=== PATIENT | female | born 1985 | race African-American/Black ===

== ENCOUNTER 2020-05-08 16:59 | Emergency (ER) | payer OTHER, SELFPAY ==
--- NOTE | 2020-05-08 17:12 | ED.GENADULT ---
HPI - General Adult General Chief complaint: Abdominal Pain Stated complaint: left side pain Time Seen by Provider: 05/08/20 17:12 Source: patient, RN notes reviewed and old records reviewed Mode of arrival: ambulatory Limitations: no limitations History of Present Illness HPI narrative: 35-year-old female presents to the [facility] with complaints of left lower abdominal pain/cramping radiating into the left lower back. States that she learns a couple of days ago that she was . 5 previous pregnancies. States she has never had pain like this before during . Has tried drinking water to improve pain but it is not working. Reports pain 7 out of 10. Denies nausea and vomiting. Reports that she is 9-10 weeks . OB is [facility] Related Data Home Medications Medication Instructions Recorded Confirmed No Home Medications 12/28/18 12/28/18 Allergies Allergy/AdvReac Type Severity Reaction Status Date / Time No Known Allergies Allergy Verified 05/08/20 17:12 Review of Systems Review of Systems: Narrative: CONSTITUTIONAL: Denies fever, chills, or sweats. CARDIOVASCULAR: Denies chest pain, palpitations, or edema. RESPIRATORY: Denies cough or dyspnea. GASTROINTESTINAL: Reports left lower abdominal pain. Denies nausea, vomiting, or diarrhea. GENITOURINARY: Denies dysuria or hematuria. SKIN: Denies rash or itching. MUSCULOSKELETAL: left lower back pain. Denies joint pain, or myalgia. NEUROLOGIC: Denies headache, numbness, or weakness. PSYCHIATRIC: Denies anxiety or depression. All other systems reviewed are negative, except as documented in HPI. PMFSH Family History Family History Father Hypertension Social History Social History Smoking status: Never smoker Second hand tobacco smoke exposure: No Substance use: current Last use: yesterday Gender identity (if verbalized by the patient): Female Spiritual care concerns: No Comments At the time of my signature, I reviewed and agree with the nursing past medical, surgical, social, and family history. There is no relevant family history pertinent to the patient complaint. Exam Narrative: Exam Narrative: GENERAL: This is a well-nourished, well-developed patient, in no apparent distress. HEAD: normocephalic, atraumatic. EYES: PERRL. Sclera clear/white. Vision is grossly intact. EARS: External ears normal. CARDIOVASCULAR: Regular rate and rhythm without murmurs, gallops, or rubs. RESPIRATORY: Clear to auscultation. GASTROINTESTINAL: Abdomen soft, Left lower tenderness. SKIN: warm, intact with no suspicious lesions or rash, good texture and turgor. NEURO: awake, alert, and oriented to person, place and time. There were no obvious focal neurologic abnormalities. EXTREMITIES: No joint tenderness, effusion, or edema noted. BACK: Nonreproducible pain left side. No midline tenderness Course Course Emergency Course: Due to patient being , left lower quadrant pain, left lower back pain without urinary symptoms discussed with patient the importance of being transferred to the ER. EMS offered patient reported that she will go by private vehicle. Vital Signs Vital signs: Vital Signs Temperature 97.8 F 05/08/20 17:16 Pulse Rate 88 05/08/20 17:16 Respiratory Rate 16 05/08/20 17:16 Blood Pressure 122/75 05/08/20 17:16 Pulse Oximetry 98 05/08/20 17:16 Temperature 97.8 F 05/08/20 17:16 Pulse Rate 88 05/08/20 17:16 Respiratory Rate 16 05/08/20 17:16 Blood Pressure 122/75 05/08/20 17:16 Pulse Oximetry 98 05/08/20 17:16 Reviewed Transfer Transfered to: [facility] Transfer rationale: Due to lack of services to include blood work and ultrasound it was best that the patient be evaluated at the closest ER. Patient prefers [place]. Accepting physician: Iglesia TAVERAS. Medical Decision Making MDM Narrative Medical decision making narrat
[2020-05-08 17:16] VITALS: BP 122/75; PULSE 88; RESP 16; TEMP 36.6; O2SAT 98
== END 2020-05-08 17:20 | disposition short-term general hospital (02) ==
PROVIDERS: Emergency Provider Nurse Practitioner
DX: O26.891 Other specified pregnancy related conditions, first trimester (principal); R10.32 Left lower quadrant pain; Z3A.09 9 weeks gestation of pregnancy
CPT/HCPCS: 99212; G0463

== ENCOUNTER 2020-05-08 17:37 | Emergency (ER) | payer OTHER, SELFPAY ==
[2020-05-08 17:39] VITALS: BP 127/81; PULSE 91; RESP 18; TEMP 36.4; O2SAT 100
[2020-05-08 17:49] LABS: Basophils Absolute Auto 0.1 K/mm3 (0.0-0.1); Basophils Percent Auto 0.4 % (0.2-1.2); Eosinophils Absolute Auto 0.3 K/mm3 (0-0.3); Hematocrit 37.9 % (37.0-47.0); Immature Granulocyte Absolute 0.06 K/mm3 (0.00-0.031); Immature Granulocyte Percent A 0.4 % (0-0.5); Lymphocytes Absolute Auto 2.69 K/mm3 (0.9-3.2); Mean Corpuscular HGB Conc 34.3 g/dl (32-36); Mean Corpuscular Hemoglobin 31.3 pg (26-34); Mean Corpuscular Volume 91.1 fl (80-100); Mean Platelet Volume 10.1 fl (7.4-10.4); Monocytes Absolute Auto 1.1 K/mm3 (0.1-0.6); Monocytes Percent Auto 7.8 % (2.6-8.5); Neutrophils Percent Auto 70.4 % (45.5-73.1); Platelet Count Result 222 k/mm3 (150-375); Red Blood Count 4.16 M/mm3 (4.2-5.4); Red Cell Distribution Width 12.7 % (11.5-14.5); White Blood Count 14.2 K/mm3 (4.5-10.0)
[2020-05-08 18:03] LABS: Anion Gap 7 mmol/L (8-16); Blood Urea Nitrogen 9 mg/dL (7-17); Calcium 8.9 mg/dL (8.4-10.2); Carbon Dioxide 22 mmol/L (22-30); Chloride 104 mmol/L (98-107); Estimated CRCL calculation 96 ml/min; Estimated Glomerular Filt Rate > 60; Glucose 97 mg/dL (65-105); Potassium 3.7 mmol/L (3.4-5.0); Sodium 133 mmol/L (137-145)
--- NOTE | 2020-05-08 18:34 | ED.GENADULT ---
HPI - General Adult General Chief complaint: Back Pain/Injury Stated complaint: flank pain - 9wks preg Time Seen by Provider: 05/08/20 18:21 Source: patient Mode of arrival: ambulatory Limitations: no limitations History of Present Illness HPI narrative: Patient is 35 years old -[place] female complaining of left lower quadrant and lateral side of left hip pain and the left flank pain started 2 days ago. Today patient started having cramps in the left lower quadrant. Patient denies any vaginal bleeding or discharge, nausea or vomiting, fever or chills. Patient is 5, para 4, 0. Patient is 9 weeks was seen by [facility] 5 days ago with normal pelvic ultrasound Related Data Home Medications Medication Instructions Recorded Confirmed No Home Medications 12/28/18 05/08/20 Allergies Allergy/AdvReac Type Severity Reaction Status Date / Time No Known Allergies Allergy Verified 05/08/20 17:12 Review of Systems Review of Systems: Narrative: CONSTITUTIONAL: Denies fever, chills, or sweats. EYES: Denies visual changes, redness, or discharge. ENT: Denies rhinorrhea, congestion, sore throat, or otalgia. CARDIOVASCULAR: Denies chest pain, palpitations, or edema. RESPIRATORY: Denies cough or dyspnea. GASTROINTESTINAL: Denies abdominal pain, nausea, vomiting, or diarrhea. GENITOURINARY: Denies dysuria or hematuria. SKIN: Denies rash or itching. MUSCULOSKELETAL: Denies back pain, joint pain, or myalgia. NEUROLOGIC: Denies headache, numbness, or weakness. PSYCHIATRIC: Denies anxiety or depression. PMFSH Family History Family History Father Hypertension Social History Social History Smoking status: Never smoker Second hand tobacco smoke exposure: No Substance use: current Last use: yesterday Gender identity (if verbalized by the patient): Female Spiritual care concerns: No Exam Narrative: Exam Narrative: General appearance: Well-developed, well-nourished Skin: Normal color Head: Normocephalic, nontraumatic Eyes: Clear conjunctiva ENT: Oropharynx normal, ears normal, nose normal Neck: Supple, nontender Chest and respiratory: Airway patent, no respiratory distress, no accessory muscle use Heart: Regular rate/rhythm Abdomen: Soft, slight tenderness in the left lower quadrant , no organomegaly, quiet bowel sounds Vascular: Normal peripheral pulses, normal capillary refill. 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 Reevaluation(s) Reevaluation #1: Patient declined to wait for pelvic ultrasound and decided to sign AMA. Date: 05/08/20 Time: 21:09 Vital Signs Vital signs: Vital Signs Temperature 36.4 C 05/08/20 17:39 Pulse Rate 91 05/08/20 17:39 Respiratory Rate 18 05/08/20 17:39 Blood Pressure 127/81 05/08/20 17:39 Pulse Oximetry 100 05/08/20 17:39 Temperature 36.4 C 05/08/20 17:39 Pulse Rate 91 05/08/20 17:39 Respiratory Rate 18 05/08/20 17:39 Blood Pressure 127/81 05/08/20 17:39 Pulse Oximetry 100 05/08/20 17:39 Medical Decision Making MDM Narrative Medical decision making narrative: Patient presents with left lower quadrant pain. Urinary tract infection, ectopic , strain/sprain is my concern. Labs, UA, beta hCG and pelvic ultrasound ordered. Further plan to follow Differ
[2020-05-08 18:59] LABS: Add Urine Microscopic? YES; Appearance Urine Clear (Clear); Bacteria Urine Trace /hpf; Bilirubin Urine Negative (Negative); Blood Urine Negative (Negative); Color Urine Straw (Yellow); Glucose Urine UA Negative (Negative); Ketones Urine Negative (Negative); Leukocyte Esterase Ur Trace LEU/UL (Negative); Mucus Urine Rare /lpf; Nitrate Urine Negative (Negative); Protein Urine Negative (Negative); RBC Urine 0-2 /hpf (0-2); Specific Grav Ur 1.013 (1.001-1.035); Squamous Epithelial Cell Urine Many /hpf (Few); Urobilinogen Urine Negative mg/dL (<2.0); WBC Urine 0-3 /hpf
[2020-05-08 19:02] VITALS: BP 116/77; PULSE 80; RESP 16; O2SAT 100
[2020-05-08 19:06] LABS: Alanine Aminotransferase 16 U/L (4-35); Alkaline Phosphatase 69 U/L (38-126); Aspartate Amino Transferase 45 U/L (14-36); Bilirubin,Total 0.2 mg/dL (0.2-1.3); Lipase 133 U/L (23-300)
--- NOTE | 2020-05-08 19:21 | PC.NURSE ---
Pt presents to ED with complaints of left flank pain that radiates around to abdomen; pt 9 weeks . Pt states pain is now rated 5/10 at this time and when offered pain medication, pt refused. Pt alert and oriented x4. Denies nausea and emesis, vaginal bleeding and diarrhea. Pt resting on cart in its lowest position with call button and personal items within reach. No complaints or concerns voiced at this time. Pt advised to press call button for assistance.
[2020-05-08 19:27] VITALS: BP 111/74; PULSE 83; RESP 17; TEMP 36.7; O2SAT 100
[2020-05-08 20:14] VITALS: BP 112/80; PULSE 85; RESP 20; O2SAT 100
--- NOTE | 2020-05-08 20:21 | PC.NURSE ---
Ultrasound called for pt transport. States someone should be down for pt soon.
--- NOTE | 2020-05-08 20:22 | PC.NURSE ---
RN asked if US had been called at this time. I spoke with Shyla whom called and was informed that they had never been contacted and they would call them in now.
--- NOTE | 2020-05-08 21:06 | PC.NURSE ---
Ultrasound never arrived for pt. Pt now requesting to leave AMA. EDMD notified and AMA forms completed by EDMD.
--- NOTE | 2020-05-08 21:19 | PC.NURSE ---
Ultrasound presented to bedside to take pt and pt refused and states she still want to leave AMA. Paperwork completed and pt to sign.
[2020-05-08 21:20] VITALS: BP 123/83; PULSE 77; RESP 18; TEMP 36.8; O2SAT 100
--- NOTE | 2020-05-08 21:20 | PC.NURSE ---
Pt signed AMA documents and was educated on danger in leaving AMA and the need to follow up due to potential ectopic and pt voiced her understanding.
[2020-05-08 21:38] VITALS: BP 123/83; PULSE 77; RESP 18; TEMP 36.8; O2SAT 100
== END 2020-05-08 21:23 | disposition left against medical advice (07) ==
PROVIDERS: Emergency Provider Emergency Medicine
DX: O26.891 Other specified pregnancy related conditions, first trimester (principal); R10.2 Pelvic and perineal pain; Z3A.09 9 weeks gestation of pregnancy
CPT/HCPCS: 36415; 80048; 80076; 81001; 81025; 83690; 84702; 85025; 99283

== ENCOUNTER 2020-08-31 16:45 | Observation (INO) | payer OTHER, SELFPAY ==
[2020-08-31 17:00] VITALS: BP 119/71; PULSE 119
--- NOTE | 2020-08-31 17:30 | PC.NURSE ---
1730-S.Dori EDOUARD called,informed pt came is c/o lower back pain that is constant and intermittent lower abdominal cramping. Pt denies any hx of pre term labor. Order received for UA and flexeril for pain.
[2020-08-31 17:32] VITALS: BMI 26.8
--- NOTE | 2020-08-31 17:33 | OBADM ---
This patient, Alla Rausch, admitted to the OB room OB Post [facility] for observation. Patient/family oriented to hospital policies and general routines including ID bracelet, bed and alarms, visiting hours, pain management, procedures, bathroom and other care routines, personal items, smoking policy, room service/diet, and visiting hours. Patient/Family are encouraged to report perceived risks to care and to ask questions if they do not understand what they are told or what they should do.
[2020-08-31] MEDS: CYCLOBENZAPRINE HCL 10 MG TABLET PO (17:42)
[2020-08-31 17:45] LABS: Add Urine Microscopic? YES; Amorphous Sediment Urine Few; Appearance Urine Cloudy (Clear); Bacteria Urine Trace /hpf; Bilirubin Urine Negative (Negative); Blood Urine Negative (Negative); Color Urine Yellow (Yellow); Glucose Urine UA Negative (Negative); Ketones Urine 1+ mg/dL (Negative); Leukocyte Esterase Ur Trace LEU/UL (Negative); Mucus Urine Heavy /lpf; Nitrate Urine Negative (Negative); Protein Urine 1+ mg/dL (Negative); Specific Grav Ur 1.018 (1.001-1.035); Squamous Epithelial Cell Urine Many /hpf (Few); Urobilinogen Urine Negative mg/dL (<2.0); WBC Urine 0-3 /hpf
--- NOTE | 2020-08-31 17:46 | PC.NURSE ---
1745-Abdomen palpated, soft to touch. Pt denies contractions.
--- NOTE | 2020-08-31 18:15 | PC.NURSE ---
Pt rocking back and forth in bed and states pain is still 10 on pain scale. Pain is across low back and with radiation down left leg. Pt denies any abdominal pain. States pain started when she threw up this morning. Pt states she went [place] zoo yesterday and states she may have gotten over heated. Warm blanket applied to low back.
--- NOTE | 2020-08-31 18:50 | PC.NURSE ---
Update to Keri Meadows CNM regarding pt getting minimal relief from Flexeril. Also advised Angely pt is concerned she is dehydrated. Order received.
[2020-08-31] MEDS: LACTATED RINGERS 1,000 ML 999 ML IV CONT (19:09)
[2020-08-31] MEDS: HYDROcodone/acetaminophen (*CRX) 5-325 MG TABLET 1 TAB PO (19:10)
[2020-08-31] MEDS: ONDANSETRON INJ 4 MG/2 ML VIAL IV PUSH (20:08)
[2020-08-31 20:24] VITALS: BP 115/65; PULSE 110
--- NOTE | 2020-08-31 20:45 | PC.NURSE ---
Pt states she is feeling much better and pain is improving. Angely Meadows notified. Feel comfortable going home to rest. Pt instructed to stay hydrated. No Diet Pepsi and do not get overheated. Pt to call office tomorrow for PT referral.
--- NOTE | 2020-09-03 21:19 | PM.OBTRLD ---
OB - Triage/Final Diagnosis Visit Information Date of evaluation: 08/31/20 Reason for evaluation: threatened labor Comments/Additional reasons for admission: I have assessed the risk for this patient, Alla Rausch, and determined that she would benefit from observation care. Evaluation Laboratory results: Laboratory Tests 08/31/20 17:26 Urine Color Yellow Urine Appearance Cloudy H Urine pH 6.0 Ur Specific [place] 1.018 Urine Protein 1+ H Urine Glucose (UA) Negative Urine Ketones 1+ H Ur Blood (Man) Negative Urine Nitrate Negative Urine Bilirubin Negative Urine Urobilinogen Negative Leukocyte Esterase Rfl Trace H Urine RBC 3-5 H Urine WBC 0-3 Ur Squamous Epith Cells Many H Amorphous Sediment Few H Urine Bacteria Trace Hyaline Casts 1-2 Urine Mucus Heavy H
== END 2020-08-31 20:50 | disposition home or self-care (01) ==
PROVIDERS: Advanced Practice Midwife; Admitting Provider Obstetrics & Gynecology; Visit Provider Obstetrics & Gynecology
DX: O47.02 False labor before 37 completed weeks of gestation, second trimester (principal); Z3A.26 26 weeks gestation of pregnancy
CPT/HCPCS: 81001; 96374; A9270; G0378; G0379; J2405; J7120

== ENCOUNTER → 2020-12-13 01:49 | Outpatient (CLI) | payer OTHER, SELFPAY ==
[2020-12-13 18:07] LABS: SARS-CoV-2 RNA PCR Negative
== END ==
PROVIDERS: Visit Provider Obstetrics & Gynecology
DX: Z01.812 Encounter for preprocedural laboratory examination (principal); Z20.822 Contact with and (suspected) exposure to COVID-19
CPT/HCPCS: C9803; U0003; U0005

== ENCOUNTER 2020-12-16 01:04 | Day surgery (SDC) | payer OTHER, SELFPAY ==
[2020-12-11 08:31] VITALS: BMI 28.5
[2020-12-16] VITALS (8 sets, daily range): BP systolic 113–137; BP diastolic 74–88; PULSE 64–82; RESP 16–20; TEMP 36.2–36.4; O2SAT 99–100
--- NOTE | 2020-12-16 07:38 | PM.IMHP ---
H&P: HPI History of Present Illness Date/Time: 12/16/20 07:38 Chief Complaint: sterilization Narrative: Alla is a who delivered her 5th baby a couple mos ago at 29w. She desires sterilization. Plan for LSC right salpingectomy, as she has already had LSO in the past. Review of Systems Review of Systems: All systems reviewed & are unremarkable except as noted in HPI and below PMFSH Past Medical History Medical History (Updated 12/15/20 @ 14:23 by Miguel Szymanski MD) Overweight (BMI 25.0-29.9) Surgical History Surgical History (Updated 12/16/20 @ 07:41 by Lorena Carreno MD) H/O section H/O LEEP History of left salpingo-oophorectomy Family History Family History Father Hypertension Social History Social History Smoking packs per day: 0.5 Smoking cigarettes per day: 10.0 Years smoked: 7 Smoking pack-years: 3.50 Smoking status: Former smoker Tobacco type: cigarettes Second hand tobacco smoke exposure: No Smoking end date: 11/22/19 Alcohol intake: current Alcohol use details: A COUPLE GLASSES OF WINE/MONTH Substance use: current Substance use type: marijuana Other substance usage details: SMOKE Last use: 12/10/20 Living arrangements: with family Additional living arrangements comments: CHILDREN Gender identity (if verbalized by the patient): Female Spiritual care concerns: No Meds Home Medications and Allergies Home Medications Medication Instructions Recorded Confirmed Type elderberry fruit [Elderberry] 200 mg PO DAILY 12/11/20 12/11/20 History Allergies Allergy/AdvReac Type Severity Reaction Status Date / Time No Known Allergies Allergy Verified 12/11/20 08:30 Exam Const: General: no acute distress Resp: Effort & Inspection: normal respiratory effort Auscultation: clear to auscultation bilaterally Cardio: Rate: regular rate Rhythm: regular rhythm GI: GI Palp: Yes Soft to palpation Extrem: General: normal to inspection Assessment and Plan Additional Plan Discussed RBA and consented for LSC right salpingectomy. Had LSO already. Will proceed.
--- NOTE | 2020-12-16 07:42 | WPDHPUPDATE1 ---
History and Physical Update Update Date/Time: 12/16/20 07:42 History and Physical has been reviewed, including an updated exam of the patient. There are NO changes in the patient's condition. Risks, benefits, and alternatives have been discussed and questions answered. Patient agrees to proceed with procedure.
[2020-12-16] MEDS: KETOROLAC 15 MG/ML VIAL (*BKC) IV PUSH (08:02)
[2020-12-16] MEDS: LACTATED RINGERS 1,000 ML 30 ML IV CONT ×2 (08:02→10:51)
[2020-12-16] MEDS: ACETAMINOPHEN 500 MG TABLET 1000 MG PO (08:02)
--- NOTE | 2020-12-16 08:11 | WPDANESEPPF ---
Anes - Initial Pre Proc Eval Procedure: Operation Date: 12/16/20 09:30 Proposed Procedures p Right Laparoscopic Salpingectomy - Lorena Carreno MD Date/Time: 12/16/20 08:11 Surgeon: Lorena Carreno MD Pre Op Diagnosis: Desires Sterilization Patient Data Age: 35 Gender: F Height: 1.71 m Weight: 83 kg Last Vital Signs Temp 36.4 C L 12/16/20 07:49 Pulse 82 12/16/20 07:49 Resp 16 12/16/20 07:49 BP 113/74 12/16/20 07:49 Pulse Ox 99 12/16/20 07:49 Allergies Allergy/AdvReac Type Severity Reaction Status Date / Time No Known Allergies Allergy Verified 12/16/20 08:07 Home Medications Medication Instructions Recorded Confirmed Type elderberry fruit [Elderberry] 200 mg PO DAILY 12/11/20 12/11/20 History Patient hx anesthesia problems: post op nausea/vomiting Family hx anesthesia problems: none Results Review: All pre-operative results and documents have been reviewed as part of the pre-operative evaluation. [facility] Past Medical History Medical History (Updated 12/16/20 @ 07:41 by Lorena Carreno MD) Overweight (BMI 25.0-29.9) Surgical History Surgical History (Updated 12/16/20 @ 07:41 by Lorena Carreno MD) H/O section H/O LEEP History of left salpingo-oophorectomy Family History Family History Father Hypertension Social History Social History Smoking packs per day: 0.5 Smoking cigarettes per day: 10.0 Years smoked: 7 Smoking pack-years: 3.50 Smoking status: Former smoker Tobacco type: cigarettes Second hand tobacco smoke exposure: No Smoking end date: 11/22/19 Alcohol intake: current Alcohol use details: A COUPLE GLASSES OF WINE/MONTH Substance use: current Substance use type: marijuana Other substance usage details: SMOKE Last use: 12/10/20 Living arrangements: with family Additional living arrangements comments: CHILDREN Gender identity (if verbalized by the patient): Female Spiritual care concerns: No Anes - Eval Final PreProcedure Day of Procedure 12/16/20 08:11 Patient weight: overweight Heart: regular rate and rhythm Lungs: clear to auscultation and normal air movement Airway: Mallampati scale class II Neurological: alert and oriented Last oral intake: >/= 8 hours ASA classification: II Emergent: no Anesthetic plan: proceed Anesthesia type and monitoring: general ETT and standard monitoring Results Review: All pre-operative results and documents have been reviewed as part of the pre-operative evaluation. Informed Consent: The patient's anesthetic plan and its attendant risks and benefits were discussed with the patient/family/POA. Questions were solicited and answers provided to the satisfaction of the patient/family/POA.
[2020-12-16] MEDS: ceFAZolin SODIUM 1 GM VIAL 2 GM IV PUSH (09:48)
--- NOTE | 2020-12-16 10:48 | W.PM.PROC2 ---
Procedure Note - Detailed Date of Procedure 12/16/20 Pre-op Diagnosis Desires Sterilization Post-op Diagnosis same Procedure Performed Laparoscopic Bilateral Salpingectomy Surgeon Lorena Carreno MD Anesthesia general Indications undesired future fertility Findings Normal right ovary. Left tube and ovary surgically absent. Normal uterus. Description of Procedure The patient was taken to the OR and placed in [facility] lith[facility]. She received general anesthesia. A speculum was placed and the cervix grasped with a single tooth tenaculum and an acorn uterine manipulator placed easily. A diez catheter had previously been placed. She had received preoperative antibiotics. A 5mm subumbilical skin incision was made and using direct visualization, the trocar was inserted intraperitoneally. The abdomen was insufflated and the pelvis inspected with the above findings. Bilateral 5mm incisions were made and trocars were placed under direct visualization. The right tube was grasped and elevated and using the Ligasure device, the tube was sequentially cauterized and ligated and removed through the trocar and sent to pathology. The left tube was surgically absent from a prior date. Hemostasis was noted. The upper abdomen was inspected and noted to be normal. The trocars were removed and the Co2 was removed from the abdomen. The skin was closed with 4-0 monocryl and steri strips. The patient tolerated the procedure well and was taken to the recovery room in stable condition. EBL 10cc. Estimated Blood Loss 10 IV Fluids 1,200 Urine Output 50 Drains No Packing No Pathology yes Complications No immediate complications Condition stable Disposition same day
[2020-12-16] MEDS: SCOPOLAMINE 1.5 MG PATCH TRANSDERM (11:54)
[2020-12-16] MEDS: oxyCODONE HCL (*CRX) 5 MG TAB IR PO (12:38)
== END 2020-12-16 12:45 | disposition home or self-care (01) ==
PROVIDERS: Visit Provider Obstetrics & Gynecology
PROC: (CPT 58671; principal; 2020-12-16 09:30)
DX: Z30.2 Encounter for sterilization (principal); Z87.891 Personal history of nicotine dependence; F12.90 Cannabis use, unspecified, uncomplicated
CPT/HCPCS: 58661; 88302; A9270; J0690; J1100; J1885; J2250; J2405; J2704; J2710; J3010; J7120

== ENCOUNTER 2021-07-11 18:58 | Emergency (ER) | payer OTHER, SELFPAY ==
[2021-07-11 19:07] VITALS: BP 134/71; PULSE 98; RESP 18; TEMP 36.2; O2SAT 99
--- NOTE | 2021-07-11 19:40 | ED.BACK ---
HPI - Back Pain/Injury General Chief Complaint: Back Pain/Injury Stated Complaint: Lower Back Pain Since Tuesday Time Seen by Provider: 07/11/21 19:12 Source: patient History of Present Illness HPI Narrative: Patient presents with low back pain. She had pain for the past several days it is achy, constant, worse with moving her torso is rating down her bilateral legs. Her symptoms have not been improving she attempted to last picker her child today and had sudden worsening of her pain and she has been unable to last picker her children she came to the ER for further evaluation. She denies any bowel or bladder incontinence denies any focal numbness or weakness she denies any recent spinal instrumentation or history of IV drug use. Denies any fevers or chills Related Data Home Medications Medication Instructions Recorded Confirmed elderberry fruit [Elderberry] 200 mg PO DAILY 12/11/20 12/16/20 Allergies Allergy/AdvReac Type Severity Reaction Status Date / Time No Known Allergies Allergy Verified 07/11/21 19:45 Review of Systems Review of Systems: CONSTITUTIONAL: Denies fever, chills, or sweats. EYES: Denies visual changes, redness, or discharge. ENT: Denies rhinorrhea, congestion, sore throat, or otalgia. CARDIOVASCULAR: Denies chest pain, palpitations, or edema. RESPIRATORY: Denies cough or dyspnea. GASTROINTESTINAL: Denies abdominal pain, nausea, vomiting, or diarrhea. GENITOURINARY: Denies dysuria or hematuria. SKIN: Denies rash or itching. MUSCULOSKELETAL: Denies joint pain, or myalgia. NEUROLOGIC: Denies headache, numbness, dizziness, or weakness. PSYCHIATRIC: Denies anxiety or depression. All systems reviewed & are unremarkable except as noted in HPI and below PMFSH Past Medical History Medical History Overweight (BMI 25.0-29.9) Surgical History Surgical History H/O section H/O LEEP History of left salpingo-oophorectomy Family History Family History Father Hypertension Social History Social History Smoking packs per day: 0.5 Smoking cigarettes per day: 10.0 Years smoked: 7 Smoking pack-years: 3.50 Smoking status: Former smoker Tobacco type: cigarettes Second hand tobacco smoke exposure: No Smoking end date: 11/22/19 Alcohol intake: current Alcohol use details: A COUPLE GLASSES OF WINE/MONTH Substance use: current Substance use type: marijuana Other substance usage details: SMOKE Last use: 12/10/20 Additional living arrangements comments: CHILDREN Gender identity (if verbalized by the patient): Female Spiritual care concerns: No Exam Narrative: GENERAL: Well-appearing, well-nourished, and in no acute distress. HEAD: Normocephalic, atraumatic. EYES: PERRLA and EOMI. ENT: Nares clear, no rhinorrhea or epistaxis. Mucous membranes moist. NECK: Supple. No masses. No JVD BACK: Mild diffuse low back pain in the lumbar area no focal midline tenderness EXTREMITIES: Normal range of motion. No edema. SKIN: Warm, dry, no rash. NEURO: 5 out of 5 strength in bilateral lower extremities and sensation intact to light touch in the lower extremities alert and oriented x3. PSYCH: Normal mood and affect. Course Vital Signs Vital signs: Vital Signs Temperature 36.2 C L 07/11/21 19:07 Pulse Rate 98 07/11/21 19:07 Respiratory Rate 18 07/11/21 19:07 Blood Pressure 134/71 07/11/21 19:07 Pulse Oximetry 99 07/11/21 19:07 Temperature 36.2 C L 07/11/21 19:07 Pulse Rate 73 07/11/21 20:05 Respiratory Rate 18 07/11/21 20:05 Blood Pressure 111/71 07/11/21 20:05 Pulse Oximetry 100 07/11/21 20:05 MDM - Back Pain/Injury MDM Narrative Medical decision making narrative: H&P as above, vss, pt looks clinically well, exam without
[2021-07-11] MEDS: KETOROLAC 30 MG/ML VIAL (*BKC) IM (19:44)
[2021-07-11 20:05] VITALS: BP 111/71; PULSE 73; RESP 18; O2SAT 100
== END 2021-07-11 20:07 | disposition home or self-care (01) ==
PROVIDERS: Emergency Provider Emergency Medicine
DX: M54.16 Radiculopathy, lumbar region (principal); S39.012A Strain of muscle, fascia and tendon of lower back, initial encounter; E66.3 Overweight; Z68.31 Body mass index [BMI] 31.0-31.9, adult; Z87.891 Personal history of nicotine dependence; X50.0XXA Overexertion from strenuous movement or load, initial encounter
CPT/HCPCS: 96372; 99283; J1885

== ENCOUNTER 2022-08-20 11:06 | Emergency (ER) | payer OTHER, SELFPAY ==
--- NOTE | ~2022-08-20 | XR_ITS ---
PA, oblique, and lateral views of the right third finger Clinical history: Pain FINDINGS: No fracture or dislocation seen. Osseous alignment is anatomic. Joint spaces are preserved. Soft tissues are unremarkable. IMPRESSION: Unremarkable exam. Reviewed, dictated and finalized at location M. IMPRESSION: Unremarkable exam.
[2022-08-20 11:14] VITALS: BP 138/84; PULSE 85; RESP 16; TEMP 36.6; O2SAT 99
--- NOTE | 2022-08-20 11:46 | ED.UPPEXIN ---
HPI - Extremity Injury (Upper) General Chief Complaint: Extremity Injury, Upper Stated Complaint: right middle finger pain Time Seen by Provider: 08/20/22 11:46 Source: patient, RN notes reviewed and old records reviewed Mode of arrival: ambulatory Limitations: no limitations History of Present Illness HPI narrative: 37-year-old female presents to the [facility] with dorsal right middle finger pain since yesterday. Patient states that she was scared by a spider and went to get away from it, hit the finger on a glass door. Bruising/swelling noted to the middle phalanx right middle finger dorsal aspect Onset (ago): day(s) (1) Related Data Home Medications Medication Instructions Recorded Confirmed baclofen 10 mg tablet 10 mg PO DAILY 08/20/22 08/20/22 topiramate 50 mg tablet 50 mg PO DAILY 08/20/22 08/20/22 Allergies Allergy/AdvReac Type Severity Reaction Status Date / Time No Known Allergies Allergy Verified 08/20/22 11:17 Review of Systems Review of Systems: All systems reviewed & are unremarkable except as noted in HPI and below Constitutional: Constitutional: Reports no additional constitutional complaints Eyes: Eyes: Reports no additional eye complaints ENT: Reports system reviewed and no additional complaints, except as documented Cardiovascular: Cardiovascular: Reports no additional cardiovascular complaints, Denies chest pain and Denies dyspnea Respiratory: Respiratory: Reports no additional respiratory complaints, Denies chest congestion, Denies cough and Denies dyspnea Gastrointestinal: Gastrointestinal: Reports no additional gastrointestinal complaints, Denies abdominal pain, Denies nausea and Denies vomiting Musculoskeletal: Musculoskeletal: Reports as per HPI Integumentary/Breasts: Skin/Breast: Reports system reviewed and no additional complaints, except as docu Neurologic: Reports system reviewed and no additional complaints, except as documented Psychiatric: Psychiatric: Reports no additional psychiatric complaints Allergic/Immunologic: Allergic/Immunologic: Reports no additional allergic/immunologic complaints REPLACED BY [facility] Past Medical History Medical History Overweight (BMI 25.0-29.9) Surgical History Surgical History H/O section H/O LEEP History of left salpingo-oophorectomy Family History Family History Father Hypertension Social History Social History Smoking packs per day: 0.5 Smoking cigarettes per day: 10.0 Years smoked: 7 Smoking pack-years: 3.50 Smoking status: Former smoker Tobacco type: cigarettes Second hand tobacco smoke exposure: No Smoking end date: 11/22/19 Alcohol intake: current Alcohol use details: A COUPLE GLASSES OF WINE/MONTH Substance use: current Substance use type: marijuana Other substance usage details: SMOKE Last use: 12/10/20 Living arrangements: with family Additional living arrangements comments: CHILDREN Gender identity (if verbalized by the patient): Female Spiritual care concerns: No Comments At the time of my signature, I reviewed and agree with the nursing past medical, surgical, social, and family history. There is no relevant family history pertinent to the patient complaint. Exam Const: General: cooperative, healthy appearing, comfortable, no acute distress, well developed, alert and well nourished Nutritional Appearance: well nourished Orientation/consciousness: patient oriented x3 Limitations: no limitations HENMT: Head: normal to inspection Ears: hearing grossly normal bilaterally and external ears normal Face/Nose/Sinus: Normal external nose present, Normal nares present, Normal nasal mucous membranes and turbinates present and normal facial exam Face and sinus: normal facia
== END 2022-08-20 12:01 | disposition home or self-care (01) ==
PROVIDERS: Emergency Provider Nurse Practitioner; PCP Nurse Practitioner Family
DX: S60.031A Contusion of right middle finger without damage to nail, initial encounter (principal); Z87.891 Personal history of nicotine dependence; W22.09XA Striking against other stationary object, initial encounter
CPT/HCPCS: 73140; 99213; G0463

== ENCOUNTER 2024-06-06 08:59 | Emergency (ER) | payer OTHER, SELFPAY ==
--- NOTE | ~2024-06-06 | XR_ITS ---
EXAMINATION: XR lumbar spine 2-3V DATE: 06/06/2024 11:49 INDICATION: Low back pain with bilateral leg radiculopathy TECHNIQUE: Anteroposterior and lateral views of the lumbar spine, and cone-down lateral view of the l umbosacral junction were obtained. COMPARISON: None. FINDINGS: 20 degrees lumbar levoscoliosis. Sagittal alignment is normal. Vertebral body heights are normal. Mil d disc height loss at L5-S1. Mild right-sided lumbar facet osteoarthritis. Mild bilateral sacroiliac osteoarthritis. Sacral arches are intact. IMPRESSION: 1. 20 degree lumbar levoscoliosis with mild spondylosis. Reviewed, dictated and finalized at location A.
[2024-06-06 09:14] VITALS: BP 164/105; PULSE 76; RESP 20; TEMP 36.3; O2SAT 100
--- OUTSIDE RECORDS SUMMARY | 2024-06-06 09:34 | XMS_ITS | Clinical Summary ---
Author Organization [facility] Address [address] [place] [address] Phone Care Team Providers Care Blind Eyeletter Name Role Phone Unavailable Primary Care Provider Unavailabl e Social History Tobacco Use Types Packs/Day Years Used Date Smoking Tobacco: Never Assessed Comments Unknown Sex and Gender Information Value Date Recorded Sex Assigned at Not on file Legal Sex Female 11:18 PM CDT Gender Identity Not on file Sexual Orientation Not on file Plan of Treatment Health Maintenance Due Date Last Done Comments Hepatitis C Virus (HCV) Screening 1987 Hepatitis B Immunization (1 of 3 - 19+ 3-dose series) 2006 Pap Smear 2008 Cervical Cancer Screening (CCS) 2017 HPV/Cotest 2017 Influenza Immunization (#1) 2023 SARS-COV-2 Immunization ( season) 2023 Respiratory Syncytial Virus (RSV) Immunization (Adult) (1 - 1-dose 75+ series) 2062 DTaP/Tdap/Td Immunization Discontinued 2018, 10/03/2017 TdaP Immunization Completed 01/09/2019, 10/03/2017 Meningococcal Immunization (ACWY) Aged Out No longer eligible based on patient's age to complete this topic Pneumococcal Immunization Combined Aged Out No longer eligible based on patient's age to complete this topic Rotavirus Immunization Aged Out No lo nger eligible based on patient's age to complete this topic
--- OUTSIDE RECORDS SUMMARY | 2024-06-06 09:34 | XMS_ITS | Clinical Summary ---
Author Organization [facility] [employer] Address [address] [place] [address] Care Team Providers Care Instructor Extension Work Name Role Phone Unavailable Primary Care Provider Unavailabl e Source Comments [facility] [employer],non-owned Affiliates and Associated Physician Practices is amultiple site organization consisting of ambulatory clinics and hospital sitesin [place], [place], [place] and [place]. This disclosure is being madepursuant to the Care Everywhere program and may not contain all information available regarding this patient. Last updated 17.[facility] [employer] Allergies No known active allergies Medications * Be aware that medications may not be up to date on this document. Alwaysverify current medications with the patient. Vit-DSS-Fe Fum-FA ( VITAMIN WITH IRON) tablet Take 1 tablet by mouth once daily Active oxyCODONE, immediate release, (ROXICODONE) 5 MG tablet Take 1 (one) tablet by mouth every 6 hours as needed for Pain 10 tablet 1 Active Additional Information Patient not taking.Reported on 11/06/2020 acetaminophen (TYLENOL) 500 MG capsule Take 2 (two) capsules by mouth every 8 hours as needed for Fever or Pain 30 capsule 1 1 Active Additional Information Patient not taking.Reported on 11/06/2020 ferrous sulfate 325 (65 FE) MG tablet Take 1 (one) tablet by mouth once daily 30 tablet 1 1 Active ibuprofen (MOTRIN) 600 MG tablet Take 1 (one) tablet by mouth every 6 hours as needed for Pain 30 tablet 1 1 Active Additional Information Patient not taking.Reported on 11/06/2020 polyethylene glycol 3350 (MIRALAX) 17 GM/SCOOP powder Take 17 (seventeen) g by mouth once daily as needed for constipation 500 g 1 1 Active Additional Information Patient not taking.Reported on 10/06/2020 NIFEdipine CR 24hr (ADALAT CC) 60 MG tablet Take 1 (one) tablet by mouth once daily Take on an empty stomach. 30 tablet 1 1 Active Blood Pressure Monitoring (BLOOD PRESSURE CUFF) MISC Use 1 Units once daily 1 Each 1 Active Additional Information Patient not taking.Reported on 10/06/2020 docusate sodium (COLACE) 100 MG capsule Take 100 mg by mouth once daily Active Active Problems Patient Care Coordination No te Formatting of this note migh t be different from the original. [employer] form completed. Diapers given. 11/06/2020 Problem Noted Date Diagnosed Date COVID-19 affecting , antepartum 021 Overview (09/23/2020): Covid mid July 2020 Non-reassuring electronic monitoring [place] ng 09/22/2020 Gestational hypertension, third trimester Oligohydramnios, antepartum affected by growth restriction Resolved Problems Problem Noted Date Diagnosed Date Resolved Date Poor growth affecting management of mother in third trimester 09/23/2020 09/24/2020 screening for malf ormation using ultrasonics 11/06/2020 Immunizations Immunization Administration Dates Next Due MMR 09/25/2020(Deferred: - rubella i mmune) TDAP (7yrs+) 09/25/2020(Deferred: - already received this ),09/22/2020 Social History Tobacco Use Types Packs/Day Years Used Date Smoking Tobacco: Smoker, Current Status Unknown Smokeless Tobacco: Never Comments:MJ; no tobacco use reported Alcohol Use Standard Drinks/Week Comments Not Currently 0 (1 standard drink = 0.6 oz pur e alcohol) Comments No Sex and Gender Information Value Date Recorded Sex Assigned at Not on file 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 Gender Identity Not on file Sexual Orientation Not on file Last Filed Vital Signs Vital Sign Reading Time Taken Comments Blood Pressure 127/87 11/06/2020 10:48 AM CDT Pulse 83 11/06/2020 10:48 AM CDT Temperature 36.9 C (98.4 F) 09/28/2020 9:35 AM CDT Respiratory Rate 20 09/28/2020 9:35 AM CDT Oxygen Saturation 100% 09/28/2020 5:35 AM CDT Inhaled Oxygen Concentration - - Weight 81.4 kg (179 lb 6.4 oz) 11/06/2020 10:48 AM CDT Height 171.5 cm (5' 7.5 ) 09/22/2020 1:20 PM CDT Body Mass Index 27.68 09/22/2020 1:20 PM CDT Plan of Treatment Health Maintenance Due Date Last Done Comments HEPATITIS B VACCINE (1 of 3 - 19+ 3-dose series) 2006 COVID-19 VACCINE (2023-2 5 season) 2023 DEPRESSION SCREENING 02/22/2024 INFLUENZA VACCINE (Season Ended) 2024 DTAP/TDAP/TD VACCINES (2 - T d or Tdap) 09/22/2030 09/22/2020 ZOSTER VACCINE (1 of 2) 2037 HEPATITIS C SCREENING Completed 06/02/2020 , 06/02/2020 HIV SCREENING Completed 09/22/2020, 09/22/2020, 06/02/2020 HIB VACCINE Aged Out No longer eligi ble based on patient's age to complete this topic HPV VACCINE Aged Out No longer eligi ble based on patient's age to complete this topic MENINGOCOCCAL (Group B) VACCINE SHARED DECISION-MAKING Aged Out No longer eligible based on patient's age to complete this topic MENINGOCOCCAL GROUPS A/C/Y/W VACCINE Aged Out No longer eligible b ased on patient's age to complete this topic PNEUMOCOCCAL VACCINE Aged Out No long er eligible based on patient's age to complete this topic Procedures Procedure Name Priority Date/Time Associated Diagnosis Comments HIV-1 HIV-2 ANTIBODY + HIV P24 AG PANEL Routine 09/22/2020 3:24 PM CDT Supervision of with grand multiparity in third trimester from Last 3 Months or Most Recently Relevant to Health Maintenance Results * HIV-1 HIV-2 ANTIBODY + HIV P24 AG PANEL (09/22/2020 3:24 PM CDT) HIV1/2 Ab + P24 Ag Non Reactive Non Reactive 09/22/2020 5:37 PM CDT [facility] Blood BLOOD SPECIMEN / Unknown Lab Venipuncture / Unknown 09/22/2020 3:24 PM CDT 09/22/2020 4:47 PM CDT Narrative [facility] - 09/22/2020 5:37 PM CDT No Laboratory evidence of HIV infection. us Terrie Ma MD LAB - CHEMISTRY ORDERABLES Final Result Performing Organization Address City/State/[facility] Co de Phone Number [facility] [address] [place], [place] [id number] from Last 3 Months or Most Recently Relevant to Health Maintenance Insurance [facility] Advance Directives * Full Code (Latest Code Status on File) Date Activated Date Inactivated Comments 09/24/2020 8:14 PM 09/28/2020 5:01 PM * Full Code Date Activated Date Inactivated Comments 09/22/2020 1:36 PM 09/24/2020 8:14 PM
--- OUTSIDE RECORDS SUMMARY | 2024-06-06 09:34 | XMS_ITS | Clinical Summary ---
Author Organization [facility] Address [address] [place] [address] Care Team Providers Care Machining Engineer Name Role Phone Simona Hassan NP Primary Care Provider Allergies No known active allergies Medications No known medications Active Problems Problem Noted Date Diagnosed Date Sore throat 03/07/2024 Overview (03/07/2024): COVID flu and strep were all negative. Take antibiotics and steroids as directed. Without resolution notify the office BMI 30.0-30.9,adult 02/28/2024 Assessment & Plan (02/28/2024 2:54 PM CRECHE ATTENDANT): BMI Follow-up includes: Discussed diet and exercising counseling. Obesity (BMI 30-39.9) 01/25/2024 Assessment & Plan (02/28/2024 2:54 PM CRECHE ATTENDANT): BMI Follow-up includes: Discussed diet and exercising counseling. Assessment & Plan (01/25/2024 10:09 AM CRECHE ATTENDANT): Discussed the patients BMI: The BMI is above average BMI management is complete. BMI follow-up includes: Nutrition Counseling and education provided Cough 01/25/2024 Neck pain on left side 07/27/2022 Overview (07/27/2022): Gentle stretches and massage. Get rice pack for heat and ice. Take baclofen prior to bedtime. Consider seeing a chiropractor. Neck x-rays Physical exam, annual 06/28/2022 Chronic cluster headache, not intractable 2022 Resolved Problems Problem Noted Date Diagnosed Date Resolved Date BMI 28.0-28.9,adult 06/28/2022 01/25/20 24 Immunizations Immunization Administration Dates Next Due Influenza, Unspecified 01/25/2024(Deferr ed: Patient Refused),02/21/2023(Deferred: Patient Refused),06/28/2022(Deferred: Patient Refused),03/24/2021(Deferred: Patient Refused) Tdap 09/22/2020,01/09/2019,10/03/2017 Surgical History Surgery Date Site/Laterality Comments TUBAL LIGATION Pt. also had left ovary removed Medical History Medical History Date Comments Headache Family History Medical History Relation Name Comments No Known Problems Father Thyroid disease Mother No Known Problems Sister Relation Name Status Comments Father Alive Mother Alive Sister Social History Tobacco Use Types Packs/Day Years Used Date Smoking Tobacco: Former Cigarettes 0.3 5 Smokeless Tobacco: Never Alcohol Use Standard Drinks/Week Comments Yes 0 (1 standard drink = 0.6 oz pur e alcohol) occasional drinks wine. AUDIT-C Answer Date Recorded Q1: How often do you have a drink containing alc ohol? Never 01/26/2023 Average Number of Drinks Not on file 023 Q3: How often do you have si x or more drinks on one occasion? Never 01/26/2023 PHQ-2 Answer Date Recorded PHQ-2 Total Score (If total score is 3 or more points, staff should administer the PHQ-9) 0 02/28/2024 Comments No Sex and Gender Information Value Date Recorded Sex Assigned at Not on file Legal Sex Female 7:12 AM CRECHE ATTENDANT Gender Identity Female 06/04/2024 8:33 AM CDT Sexual Orientation Straight 06/04/2024 8: 33 AM CDT Obstetrics History Last Filed Vital Signs Vital Sign Reading Time Taken Comments Blood Pressure 110/80 02/28/2024 2:50 PM CRECHE ATTENDANT Pulse 82 02/28/2024 2:50 PM CRECHE ATTENDANT Temperature 36.8 C (98.3 F) 02/28/2024 2:50 PM CRECHE ATTENDANT Respiratory Rate 16 07/27/2022 7:38 AM CDT Oxygen Saturation 97% 02/28/2024 2:50 PM CRECHE ATTENDANT Inhaled Oxygen Concentration - - Weight 87.1 kg (192 lb) 02/28/2024 2:50 PM CRECHE ATTENDANT Height 170.2 cm (5' 7 ) 02/28/2024 2:50 PM CRECHE ATTENDANT Body Mass Index 30.07 02/28/2024 2:50 PM CRECHE ATTENDANT Plan of Treatment Health Maintenance Due Date Last Done Comments Cervical Cancer Screening 1987 Hepatitis C Screening 1987 Varicella Vaccines (1 of 2 - 13+ 2-dose series) 2000 Hepatitis B Screening 2005 Regular Well Visit/Exam 18-64 06/29/2023 06/28/2022 Influenza Vaccine (Season Ended) 2024 Depression Screening 02/27/2025 02/28/2024, 01/25/2024, 01/26/2023, Additional history exists DTaP/Tdap/Td Vaccine (4 - Td or Tdap) 09/22/2030 09/22/2020, 01/09/2019, 10/03/2017 HPV Vaccines Aged Out No longer eligi ble based on patient's age to complete this topic Pneumococcal vaccine <65 Aged Out No longer eligible based on patient's age to complete this topic Insurance [facility] MEDICA[employer] [facility] Care Teams Machining Engineer Relationship Specialty Start Date End Date Simona Hassan NP [address] [place] [address] PCP - General Internal Medicine 06/28/22
--- OUTSIDE RECORDS SUMMARY | 2024-06-06 09:34 | XMS_ITS | Data Portability ---
Author Organization [facility] Address [address] [place] [address] Care Team Providers Care Cane Flume Watchman Name Role Phone FELIX CARLSON Primary Care Provider [phone] Assessment Encounter Date Assessment Date Assessment LastModified by Organization Details LastModified Time 07/07/2022 07/07/2022 Annual gynecological exam performed. Patient will come back in a year unless there are new symptoms. [email or web address] Not available 07/07/2022 15:49:11 01/16/2024 01/16/2024 The patient and I disscussed the various causes of abnormal uterine bleeding, including polyps, fibroids, hyperplasia, atypia, anovulation, etc. We reviewed the typical evaluation with labs, pelvic US and possible endometrial biopsy. Briefly discussed the options available for treatment (depending on the results of evaluation) such as hormonal treatment (OCPs, progestins), Mirena, endometrial ablation, and surgery. We spent more than 30 minutes face to face. [email or web address] Not available 01/16/2024 12:21:27 Plan of Treatment Reminders Order Date Submit Date Provider Last Modified By Organization Details Last Modified Time Details Appointments None recorded. Lab unlisted lab - 17-oh progesteron e, lc/MS/MS 2023 024 [facility] (Lab), [address], [place], [address], 22:18:41 dhea-sulfat e, serum 2023 024 [facility] (Lab), [address], [place], [address], 4 22:18:39 hormone panel, serum or plasma 2023 024 [facility] (Lab), [address] [place], [address], 4 22:18:40 HbA1c (hemoglobin A1c), blood 2023 024 [facility] (Lab), [address] [place], [address], 4 22:18:41 progesteron e, serum 2023 024 [facility] (Lab), [address] [place], [address], 4 22:18:39 prolactin, serum 2023 024 [facility] (Lab), [address] [place], [address], 4 22:18:39 shbg (sex hormone-bin ding globulin), serum 2023 024 [facility] (Lab), [address] [place], [address], 4 22:18:40 testosteron e free/testos terone total, ratio, serum 2023 024 [facility] (Lab), [address] [place], [address], 4 22:18:41 TSH, serum or plasma 2023 024 [facility] (Lab), [address] [place], [address], 4 22:18:40 hbcab (hepatitis B core Ab) igm, serum 2022 023 [facility] (Lab), [address], [place], [address], 3 20:48:37 HBsAg (hepatitis B surface Ag), serum 2022 023 [facility] (Lab), [address], [place], [address], 3 20:48:35 hepatitis C virus Ab, serum 2022 023 [facility] (Lab), [address], [place], [address], 3 20:48:36 unlisted lab - HIV 1/2 antigen/ant ibody, reflex confirmatio n 2022 023 [facility] (Lab), [address], [place], [address], 3 20:48:36 RPR (rapid plasma reagin), serum 2022 023 [facility] (Lab), [address], [place], [address], 3 20:48:37 Referral None recorded. Procedures None recorded. Surgeries None recorded. Imaging US, pelvis 2023 024 [email or web address] [place], [address], [address], [place], [address], 4 18:14:52 US, transvagina l 2023 024 [email or web address] [place], [address], [address], [place], [address], 4 18:14:52 US, pelvis, complete 2023 024 [email or web address], [address], [place], [address], 5 11:07:38 Medication Orders None recorded. Patient TargetsNo targets recorded. Patient InstructionsNo instructions recorded. Reason for Referral None Reported. Results Created Date Observation Date Name Description Value Unit Range Abnormal Flag Note LastModifiedBy Organization Detail LastModifiedTime 11/10/19 22 11/09/2021 CT/GC AND TRICH OMONA S VAGIN CONNOR (RRNA ), URINE chlamydia trachomatis, PCR Negati ve negati ve Not Available [facility] [address] [place] [address], [address], 11/10/2021 12:31:48 11/10/19 22 11/09/2021 CT/GC AND TRICH OMONA S VAGIN CONNOR (RRNA ), URINE neisseria gonorrhoeae, PCR Negati ve negati ve Not Available [facility] [address] [place] [address], [address], 11/10/2021 12:31:48 11/10/19 22 11/09/2021 CT/GC AND TRICH OMONA S VAGIN CONNOR (RRNA ), URINE trichomonas vaginalis ribosomal RNA (rrna) Negati ve negati ve Not Available [facility] [address] [place] [address], [address], 11/10/2021 12:31:48 07/08/19 23 07/07/2022 HEPAT ITIS B SURFA CE ANTIG EN hepatitis B surface antigen Non-re active non-re active This assay was perfo rmed using [employer] Corpo ratio n reage nts and test kits. Value s obtai cinthya with other assay metho ds or kits canno t be used inter king eably . Not Available [facility] (Lab) [address], [place], [address], 07/08/2022 20:48:35 07/08/19 23 07/07/2022 HIV 1/2 ANTIG EN/AN TIBOD Y, REFLE X CONFI RMATI ON HIV antigen/anti body Nonrea ctive nonrea ctive HIV-1 antig en and HIV-1 /HIV- 2 antib odies were not detec tom. No labor atory evide nce of HIV infec tion. Not Available [facility] (Lab) [address], [place], [address], 07/08/2022 20:48:36 07/08/19 23 07/07/2022 HEPAT ITIS C ANTIB SONY SCREE N, REFLE X TO CONFI RMATI ON hepatitis C antibody Non-re active non-re active Antib odies to HCV Not Detec tom, does not exclu de the possi bilit y of expos ure to HCV. Not Available [facility] (Lab) [address], [place], [address], 07/08/2022 20:48:36 07/08/19 23 07/07/2022 RPR SCREE N/REF LES TITER /FTA RPR screen Nonrea ctive nonrea ctive Not Available [facility] (Lab) [address], [place], [address], 07/08/2022 20:48:37 07/08/19 23 07/07/2022 HEPAT ITIS B CORE, IGM hepatitis B core IgM antibody Negati ve negati ve Not Available [facility] (Lab) [address] [place], [address], 07/08/2022 20:48:37 07/08/19 23 07/07/2022 IMAGE GUIDE D PAP AND HPV REGAR DLESS image guided Pap, HPV regardless of Pap result SEE RESULT S BELOW CASE REPOR T: Cytol ogy Gynec ologi kwame Repor t Case: [id number] Autho arya g Provi nata: Rosario Bello NP Colle cted: 07/07 1730 Order ing Locat ion: [facility] Recei abhi: 07/08 1010 First Scree n: Waltergne r, Bisi ica Rescr een: Aime an, Samantha Speci men: Scree michael Pap - Image d, Cervi x STATE MENT OF ADEQU ACY: Satis facto ry for evalu ation Trans forma tion zone compo nent absen t The absen ce of an endoc ervic al compo nent was confi rmed by an addit jim aguilar. FINAL DIAGN OSIS: Negat goldy for Intra epith elial Lesio n or Gabriela oviedo (NIL) . Shift in ines sugge stive of bacte rial vagin osis. Elect ann-marie mcgrath d by Samantha Hopkins on 2022 at 4:10 PM ----- ----- ----- ----- ----- ----- ----- ----- ----- ----- ----- ----- ----- ----- ----- ----- ----- ---- HPV RESUL TS: HPV mRNA E6/E7 : No HPV mRNA Detec tom NOTE: This high risk HPV mRNA assay detec ts fourt een high- risk HPV types (16, 18, 31, 33, 35, 39, 45, 51, 52, 56, 58, 59, 66, 68) witho ut diffe renti ation . COMME NT: This speci men was revie wed by a Cytot echno logis t and/o r Patho logis t (as indic ated in this repor t) after evalu ation using the Thinp rep Imagi ng Syste m. CLINI KWAME INFOR MATIO N: Menst rual Statu s: LMP (if appli cable ): Clini kwame Histo ry/Pr eviou s Pap: Type of Neopl bryanna (if appli cable ): Signi fican t Clini kwame Findi ngs: Other Histo ry: Hormo james (if appli cable ): PAP EDUCA PRESLEY L NOTE: The Pap Test is a scree michael test with an inher ent false negat goldy rate. Liqui d-bas ed sampl ing may decre ase, but will not elimi holland, false negat goldy resul ts. A negat goldy resul t does not precl ude the prese nce and/o r devel opmen t of disea se, since the prese nce of abnor mal cells in the sampl e depen ds on the locat ion of the lesio n and sampl ing techn ique. Nash nued regul ar scree michael is the best metho d of cance r preve ntion . If repor tom cytol ogic findi ng do not corre late with physi kwame and/o r histo rical findi ngs, furth er inves tigat ion is recom gena d, as clini michael chen nted. Not Available [facility] (Lab) [address], [place], [address], 07/09/2022 17:13:53 07/08/19 23 07/07/2022 TRICH OMONA S VAGIN CONNOR (RRNA ) trichomonas vaginalis ribosomal RNA (rrna) Negati ve negati ve Not Available [facility] (Lab) [address], [place], [address], 07/09/2022 17:13:54 07/08/19 23 07/07/2022 CT/GC (ROSEMARY) , THINP REP VIAL chlamydia trachomatis, PCR Negati ve negati ve Not Available [facility] (Lab) [address], [place], [address], 07/09/2022 17:13:54 07/08/19 23 07/07/2022 CT/GC (ROSEMARY) , THINP REP VIAL neisseria gonorrhoeae, PCR Negati ve negati ve Not Available [facility] (Lab) [address], [place], [address], 07/09/2022 17:13:54 01/16/20 24 01/16/2024 DHEA SULFA TE DHEA-sulfate 150 ug/dL Femal e Range s Age(y ) Range (ug/d L) 10-15 34-28 0 15-20 65-36 8 20-25 148-4 07 25-35 99-34 0 35-45 61-33 7 45-55 35-25 6 55-65 19-20 5 65-75 9-246 > 75 12-15 4 Not Available [facility] (Lab) [address] [place], [address], 01/24/2024 22:18:39 01/16/20 24 01/16/2024 PROGE STERO NE progesterone 0.15 NG/mL This assay was perfo rmed using [employer] Corpo ratio n reage nts and test kits. Value s obtai cinthya with other assay metho ds or kits canno t be used inter [facility] . Femal e Proge stero ne Range s: Folli cular phase 0.06- 0.89 ng/mL Ovula tion phase 0.12- 12.00 ng/mL Lutea l phase 1.83- 23.90 ng/mL Postm enopa usal <0.05 -0.13 ng/mL Healt hy Pregn ant Women 1st Trime ster 11.0- 44.30 2nd Trime ster 25.40 -83.3 0 3rd Trime ster 58.70 -214. 00 Not Available [facility] (Lab) [address], [place], [address], 01/24/2024 22:18:39 01/16/20 24 01/16/2024 PROLA CTIN prolactin, total 5.98 NG/mL 4.79-2 3.30 This assay was perfo rmed using [employer] Corpo ratio n reage nts and test kits. Value s obtai cinthya with other assay metho ds or kits canno t be used inter [facility] . Not Available [facility] (Lab) [address] [place], [address], 01/24/2024 22:18:39 01/16/20 24 01/16/2024 FSH, LH, ESTRA DIOL estradiol 38.1 pg/mL This assay was perfo rmed using [employer] Corpo ratio n reage nts and test kits. Value s obtai cinthya with other assay metho ds or kits canno t be used inter [facility] . Femal e Estra diol Range s: Folli cular phase 12.4- 233 pg/mL Ovula tion phase 41.0- 398 pg/mL Lutea l phase 22.3- 341 pg/mL Postm enopa usal <5-13 8 pg/mL Healt hy Pregn ant Women 1st Trime ster 154-3 243 pg/mL 2nd Trime ster 1561- 58716 pg/mL 3rd Trime ster 8525- >3000 0 pg/mL Not Available [facility] (Lab) [address], [place], [address], 01/24/2024 22:18:40 01/16/20 24 01/16/2024 FSH, LH, ESTRA DIOL FSH 8.0 mIU/m L This assay was perfo rmed using [employer] Corpo ratio n reage nts and test kits. Value s obtai cinthya with other assay metho ds or kits canno t be used inter [facility] . Femal es Folli cular : 3.5-1 2.5 mIU/m L Ovula tion: 4.7-2 1.5 mIU/m L Lutea l: 1.7-7 .7 mIU/m L Postm enopa use: 25.8- 134.8 mIU/m L Not Available [facility] (Lab) [address], [place], [address], 01/24/2024 22:18:40 01/16/20 24 01/16/2024 FSH, LH, ESTRA DIOL LH 4.7 mIU/m L This assay was perfo rmed using [employer] Corpo ratio n reage nts and test kits. Value s obtai cinthya with other assay metho ds or kits canno t be used inter king eably . Femal es Mid-F ollic ular: 2.4-1 2.6 mIU/m L Mid-C ycle: 14.0- 95.6 mIU/m L Mid-L uteal : 1.0-1 1.4 mIU/m L Postm enopa use: 7.7-5 8.5 mIU/m L Not Available [facility] (Lab) [address] [place], [address], 01/24/2024 22:18:40 01/16/20 24 01/16/2024 TSH, REFLE X FREE T4 TSH 0.86 uIU/m L 0.30-5 .33 Not Available [facility] (Lab) [address], [place], [address], 01/24/2024 22:18:40 01/16/20 24 01/16/2024 HUMAN SEX HORMO NE ANA NG GLOBU TEQUILA sex hormone binding globulin 38.7 nmole s/L 18.2-1 35.5 Not Available [facility] (Lab) [address], [place], [address], 01/24/2024 22:18:40 01/16/20 24 01/16/2024 HEMOG LOBIN A1C hemoglobin A1C 5.7 % 0-5.6 high The Ameri can [employer] mar[employer] iatio n recom mends that a prima ry goal of thera py bill d be a HBA1C of < 7% and that physi cians shoul d reeva luate the treat ment regim en in patie nts with HBA1C value s consi stent ly > 8%. <5.7% Ann-Marie l 5.7 - 6.4% Incre ased risk for diabe marita >=6.5 % Diagn ostic of diabe marita <7.0% Goal of thera py >8.0% Actio n sugge sted Not Available [facility] (Lab) [address], [place], [address], 01/24/2024 22:18:41 01/16/20 24 01/16/2024 17-OH PROGE STERO NE 17-hydroxypr ogesterone, lc/MS/MS 13 NG/dL Adult Femal e Refer ence Range s for 17-Hy droxy proge stero ne: Pre-M enopa usal Mid Folli cular : 23-10 2 ng/dL Pre-M enopa usal Surge : 67-34 9 ng/dL Pre-M enopa usal Mid Lutea l: 139-4 31 ng/dL Postm enopa usal Phase : < or = 45 ng/dL Pregn hillary: First Trime ster: 78-45 7 ng/dL Secon d Trime ster: 90-35 7 ng/dL Third Trime ster: 144-5 78 ng/dL This test was devel oped and its deborah tical perfo rmanc e dawn cteri stics have been deter mined by [facility]. It has not been clear ed or appro abhi by FDA. This assay has been valid ated pursu ant to the CLIA regul ation s and is used for clini kwame purpo ses. Perfo rming Organ izati on Dionir lara n: Site ID: [id number] Name: [facility]/Ethan christopher C-S are[place] , Addre ss: [id number] [address] [place] [address] [facility] tor: Jessenia keys MD,Ph D,TY Not Available [facility] (Lab) [address] [place], [address], 01/24/2024 22:18:41 01/16/20 24 01/16/2024 TESTO STERO NE, FREE( DIALY SIS) AND TOTAL (LC/M S/MS) testosterone , total 27 NG/dL 2-45 For addit ional felisha fitzgerald refer to http: //jovana alberto.que stdia gnost ics.c om/fa q/ Total Testo stero neLCM SMSFA Q165 (This link is being provi ded for inforobinson galvan/ educa presley l purpo ses only. ) This test was devel oped and its deborah tical perfo rmanc e dawn cteri stics have been deter mined by [facility] Abel Maresi TANIA Tsang. It has not been clear ed or appro abhi by the U.S. Food and Drug Admin istra tion. This assay has been valid ated pursu ant to the CLIA regul ation s and is used for clini kwame purpo ses. Not Available [facility] (Lab) [address] [place], [address], 01/24/2024 22:18:41 01/16/20 24 01/16/2024 TESTO STERO NE, FREE( DIALY SIS) AND TOTAL (LC/M S/MS) testosterone , free 4.2 pg/mL 0.1-6. 4 This test was devel oped and its deborah tical perfo rmanc e dawn cteri stics have been deter mined by [facility] [employer] [place] [place]. It has not been clear ed or appro abhi by the U.S. Food and Drug Admin istra tion. This assay has been valid ated pursu ant to the CLIA regul ation s and is used for clini kwame purpo ses. Perfo rming Organ izati on Infor matio n: Site ID: [id number] Name: [facility] [employer] Abel ls Insti tute Addre ss: [id number] [employer] [place], [place] Direc tor: Nina Card MD PhD Not Available [facility] (Lab) [address], [place], [address], 01/24/2024 22:18:41 01/17/20 24 01/17/2024 US, pelvi s No observ ation record ed. [email or web address] [place] [address] [facility] [address], [place], [address], 01/17/2024 14:49:09 01/17/20 24 01/17/2024 US, trans vagin al No observ ation record ed. [email or web address] [place] [address], [place], [address], 01/17/2024 14:49:25 01/17/20 24 01/17/2024 US, pelvi s No observ ation record ed. [email or web address] [place] [address], [place], [address], 01/17/2024 19:06:08 Result Notes None recorded. Problems Name Problem SNOMED Code Status Onset Date Resolution Date Notes Provider Name and Address Organization Details Recorded Time History of loop electros urgical excision procedur e [id number] 9102 Active 2014 CL at 16 and 20 weeks Shirley Camarenaizzle jessica, [facility] 1 10:50:05 Insertio n of subcutan eous contrace ptive Completed 201902/18/2020 Encounte r for initial prescrip tion of implanta ble subderma l contrace ptive;Re corded Elsewher e: No Locat ion: [facility] S ource: EHR Systems Manager ethan: N Practi ce ID: 0001 Marcos lable Time: 02:30:00 PM Lorena Carreno MD [address], [place], [address], [facility] [address] 11:33:[address] Concept Completed 201502/18/2020 Encntr for general adult medical exam w/o abnormal findings ;Recorde d Elsewher e: No Locat ion: [facility] S ource: EHR Systems Manager ethan: N Practi ce ID: 0001 Marcos lable Time: 08:30:00 AM Lorena Carreno MD [address], [place], [address], [facility] 0 11:34:22 Routine antenata l care Completed 201202/18/2020 Supervis ion of other normal pregnanc y;Practi ce ID: 0001 Lorena Carreno MD [address], [place], [address], [facility] 0 11:34:13 Poor growth affectin g manageme nt [id number] Completed 201202/18/2020 GROWTH POOR SGA;Prac juana ID: 0001 Lorena Carreno MD [address], [place], [address], [facility] 0 11:33:57 Complica tion related to pregnanc y Completed 201202/18/2020 Weight Insuffic ient Antepart um;Pract ice ID: 0001 Lorena Carreno MD [address], [place], [address], [facility] 0 11:32:57 Threaten ed prematur e labor - not delivere d [id number] Completed 201202/18/2020 Threaten ed prematur e labor, antepart um;Pract ice ID: 0001 Lorena Carreno MD [address], [place], [address], [facility] [address] 11:34:[address] Concept Completed 201902/18/2020 Encounte r for surveill ance of other contrace ptives;R ecorded Elsewher e: No Locat ion: [facility] S ource: EHR Systems Manager ethan: N Ted ce ID: 0001 Marcos lable Time: 02:30:00 PM Lorena Carreno MD [address], [place], [address], [facility] 0 11:34:26 Normal pregnanc y in multigra leandro [id number] Completed 201802/18/2020 Encounte r for suprvsn of normal pregnanc y, third trimeste r;Record ed Elsewher e: No Locat ion: [facility] S ource: EHR Systems Manager ethan: N Ted ce ID: 0001 Marcos lable Time: 10:45:00 AM Lorena Carreno MD [address], [place], [address], [facility] 0 11:33:55 Pregnanc y detectio n examinat ion Completed 201802/18/2020 Encounte r for pregnanc y test, result positive ;Recorde d Elsewher e: No Locat ion: [facility] S ource: EHR Systems Manager ethan: N Paulti ce ID: 0001 Marcos lable Time: 11:15:00 AM Lorena Carreno MD [address], [place], [address], [facility] 0 11:34:03 Acute vaginiti s [id number] Completed 201602/18/2020 Vaginiti s;Record ed Elsewher e: No Locat ion: [facility] S ource: EHR Systems Manager ethan: N Paulti ce ID: [id number] Marcos lable Time: 03:30:00 PM Lorena Carreno MD [address], [place], [address], [facility] 0 11:32:29 Antenata l screenin g Completed 201802/18/2020 Encounte r for antenata l screenin g for nuchal transluc ency;Rec orded Elsewher e: No Locat ion: [facility] S ource: EHR Systems Manager ethan: N Ted ce ID: 0001 Marcos lable Time: 02:00:00 PM Lorena Carreno MD [address], [place], [address], [facility] 0 11:32:42 Amenorrh ea [id number] Completed 201202/18/2020 Absence of menstrua tion;Rec orded Elsewher e: No Locat ion: [facility] S ource: EHR Systems Manager ethan: N Ted ce ID: 0001 Marcos lable Time: 02:45:[address] MD [address], [place], [address], [facility] 0 11:32:40 Pregnanc y test negative [id number] Completed 201202/18/2020 Pregnanc y examinat ion or test, negative result;R ecorded Elsewher e: No [facility] S ource: EHR Systems Manager ethan: N Ted ce ID: 0001 Marcos lable Time: 09:45:00 AM MD [address], [place], [address], [facility] 0 11:34:05 Nausea and vomiting [id number] Completed 201202/18/2020 Nausea And Vomiting ;Recorde d Elsewher e: No Locat ion: [facility] S ource: EHR Systems Manager ethan: N Practi ce ID: 0001 Marcos lable Time: 02:45:00 PM Lorena Carreno MD [address], [place], [address], [facility] 0 11:33:52 Speciali zed medical examinat ion Completed 201402/18/2020 Gynecolo gical Examinat ion;Homero rded Elsewher e: No Locat ion: [facility] S ource: EHR Systems Manager ethan: N Practi ce ID: 0001 Marcos lable Time: 11:30:00 AM Lorena Carreno MD [address], [place], [address], [facility] 0 11:34:29 Syphilis test finding [id number] Completed 201702/18/2020 Encounte r for STD screenin g;Record ed Elsewher e: No Locat ion: [facility] S ource: EHR Systems Manager ethan: N Practi ce ID: 0001 Marcos lable Time: 01:45:00 PM Lorena Carreno MD [address], [place], [address], [facility] 0 11:34:38 Dysfunct ional uterine bleeding Completed 201302/18/2020 DUB - Dysfunct ional uterine bleeding ;Recorde d Elsewher e: No Locat ion: [facility] S ource: EHR Systems Manager ethan: N Practi ce ID: 0001 Marcos lable Time: 08:15:00 AM Lorena Carreno MD [address], [place], [address], [facility] 0 11:33:12 Ultrason ography Completed 201202/18/2020 Antenata l screenin g for malforma tion using ultrason ics;Prac juana ID: 0001 Lorena Carreno MD [address], [place], [address], [facility] 0 11:34:47 Congenit al malforma tion [id number] Completed 201202/18/2020 Antenata l screenin g for malforma tion using ultrason ics;Prac juana ID: 0001 Lorena Carreno MD [address], [place], [address], [facility] 0 11:33:00 Finding related to pregnanc y [id number] Completed 201202/18/2020 CERVICAL SHORTENI NG-ANTE; Practice ID: [address], [place], [address], [facility] 0 11:33:27 False labor at or after 37 complete d weeks of gestatio n [id number] Completed 201202/18/2020 Other threaten ed labor, antepart um;Pract ice ID: [address], [place], [address], [facility] 0 11:33:16 Female genital organ symptoms [id number] Completed 201202/18/2020 Other specifie d symptoms associat ed with female genital organs;P ractice ID: 0001 Lorena Carreno MD [address], [place], [address], [facility] 0 11:33:24 Primigra leandro [id number] Completed 201202/18/2020 Supervis ion of normal first pregnanc y;Practi ce ID: [address], [place], [address], [facility] 0 11:34:11 Colitis, enteriti s and gastroen teritis presumed infectio us [id number] Completed 201202/18/2020 Colitis, enteriti s, and gastroen teritis of presumed infectio us origin;P ractice ID: 0001 Lorena Carreno MD [address], [place], [address], [facility] 0 11:32:53 Vaginiti s and vulvovag initis Completed 201202/18/2020 Vaginiti s and vulvovag initis, unspecif ied;Prac juana ID: 0001 Lorena Carreno MD [address], [place], [address], [facility] 0 11:35:01 Pregnanc y test positive [id number] Completed 201202/18/2020 Positive Pregnanc y Test;Pra ctice ID: 0001 Lorena Carreno MD [address], [place], [address], [facility] 0 11:34:08 Screenin g for malignan t neoplasm of cervix Completed 201202/18/2020 Pap Smear;Pr actice ID: 0001 Lorena Carreno MD [address], [place], [address], [facility] 0 11:34:17 Uterine size for dates discrepa ncy [id number] Completed 201202/18/2020 UTERINE SIZE GALILEA-ANTE PAR;Prac juana ID: 0001 Lorena Carreno MD [address], [place], [address], [facility] 0 11:34:57 Mild hypereme sis-not delivere d [id number] Completed 201202/18/2020 Mild hypereme sis gravidar um, antepart um;Pract ice ID: 0001 Lorena Carreno MD [address], [place], [address], [facility] 0 11:33:49 Adult health examinat ion Completed 201202/18/2020 Routine general medical examinat ion at a health care facility ;Practic e ID: 0001 Lorena Carreno MD [address], [place], [address], [facility] 0 11:32:35 Lochia finding Completed 201802/18/2020 Encounte r for routine postpart um follow-u p;Record ed Elsewher e: No Locat ion: [facility] S ource: EHR Systems Manager ethan: N Practi ce ID: 0001 Marcos lable Time: 09:00:00 AM Lorena Carreno MD [address], [place], [address], [facility] 0 11:33:43 Clinical finding Completed 201602/18/2020 Encounte r for surveill ance of injectab le contrace ptive;Re corded Elsewher e: No Locat ion: [facility] S ource: EHR Systems Manager ethan: N Practi ce ID: 0001 Marcos lable Time: 08:00:00 AM Loerna Carreno MD [address], [place], [address], [facility] 0 11:32:48 Gestatio n period, 10 weeks [id number] Completed 201802/18/2020 10 weeks gestatio n of pregnanc y;Record ed Elsewher e: No Locat ion: [facility] S ource: EHR Systems Manager ethan: N Practi ce ID: 0001 Marcos lable Time: 11:00:00 AM MD [address], [place], [address], [facility] [address] 11:33:[address] Concept Completed 201802/18/2020 Encntr for television host exam (general ) (routine ) w/o abn findings ;Recorde d Elsewher e: No Locat ion: [facility] S ource: EHR Systems Manager ethan: N Ted ce ID: 0001 Marcos lable Time: 03:30:00 PM Lorena Carreno MD [address], [place], [address], [facility] 0 11:34:24 Contrace ption care manageme nt Completed 201902/18/2020 Encounte r for contrace ptive manageme nt, unspecif ied;Homero rded Elsewher e: No Locat ion: [facility] S ource: EHR Systems Manager ethan: N Ted ce ID: 0001 Marcos lable Time: 10:30:00 AM Lorena Carreno MD [address], [place], [address], [facility] 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 0 11:34:53 Subcutan eous contrace ptive implant present [id number] Completed 201302/18/2020 Surveill ance of implanta ble subderma l contrace ptive;Re corded Elsewher e: No [facility] S ource: EHR Systems Manager ethan: N Ted ce ID: 0001 Marcos lable Time: 01:00:00 PM Lorena Carreno MD [address], [place], [address], [facility] 0 11:34:32 Insertio n of intraute rine contrace ptive device Completed 201602/18/2020 Encounte r for insertio n of intraute rine contrace ptive device;R ecorded Elsewher e: No Locat ion: [facility] S ource: EHR Systems Manager ethan: N Practi ce ID: 0001 Marcos lable Time: 01:45:00 PM Lorena Carreno MD [address], [place], [address], [facility] 0 11:33:37 Family planning surveill ance Completed 201402/18/2020 Contrace ptive surveill ance, unspecif ied;Homero rded Elsewher e: No [facility] S ource: EHR Systems Manager ethan: N Practi ce ID: 0001 Marcos lable Time: 08:30:00 AM Lorena Carreno MD [address], [place], [address], [facility] 0 11:33:21 Contrace ptive sheath status [id number] Completed 201902/18/2020 Encounte r for initial prescrip tion of other contrace ptives;R ecorded Elsewher e: No [facility] S ource: EHR Systems Manager ethan: N Practi ce ID: 0001 Marcos lable Time: 10:30:00 AM Lorena Carreno MD [address], [place], [address], [facility] 0 11:33:06 Educatio n Completed 201802/18/2020 Encounte r for other general counseli ng and advice on contrace ption;Re corded Elsewher e: No Locat ion: [facility] S ource: EHR Systems Manager ethan: N Practi ce ID: 0001 Marcos lable Time: 09:00:00 AM Lorena Carreno MD [address], [place], [address], [facility] 0 11:33:18 Postpart um care Completed 201202/18/2020 Post Followup ;Recorde d Elsewher e: No [facility] S ource: EHR Systems Manager ethan: N Ted ce ID: 0001 Marcos lable Time: 08:45:00 AM Lorena Carreno MD [address], [place], [address], [facility] 0 11:34:00 Venereal disease screenin g Completed 201402/18/2020 Screenin g exam for STD;Homero rded Elsewher e: No Locat ion: [facility] S ource: EHR Systems Manager ethan: Kyra Jean ce ID: 0001 Marcos lable Time: 11:30:00 AM Lorena Carreno MD [address], [place], [address], [facility] 0 11:35:09 Microsco pic hematuri a [id number] Completed 201302/18/2020 MICROSCO PIC HEMATURI A;Record ed Elsewher e: No Locat ion: [facility] S ource: EHR Systems Manager ethan: N Ted ce ID: 0001 Marcos lable Time: 10:30:[address] AM MD [address], [place], [address], [facility] 0 11:33:46 Vaginola bial hernia Completed 201502/18/2020 Other specifie d noninfla mmatory disorder s of vagina;R ecorded Elsewher e: No [facility] S ource: EHR Systems Manager ethan: Kyra Jean ce ID: 0001 Marcos lable Time: 03:30:00 PM Lorena Carreno MD [address], [place], [address], [facility] 0 11:35:06 Trichomo nal vulvovag initis [id number] Completed 201704/14/2021 Trichomo nal vulvovag initis;R ecorded Elsewher e: No Locat ion: [facility] S ource: EHR Systems Manager ethan: Kyra Jean ce ID: 0001 Marcos lable Time: 01:45:00 PM Lorena Carreno MD [address], [place], [address], [facility] 2 14:53:59 Antenata l screenin g for malforma tion Completed 201802/18/2020 Encounte r for antenata l screenin g for malforma tions;Re corded Elsewher e: No [facility] S ource: EHR Systems Manager ethan: Kyra Jean ce ID: 0001 Marcos lable Time: 11:00:00 AM Lorena Carreno MD [address], [place], [address], [facility] 0 11:32:45 Surveill ance of contrace ption Completed 201702/18/2020 Encounte r for surveill ance of contrace ptives, unspecif ied;Homero rded Elsewher e: No Locat ion: [facility] S ource: EHR Systems Manager ethan: Kyra Jean ce ID: 0001 Marcos lable Time: 09:30:00 AM Lorena Carreno MD [address], [place], [address], [facility] 0 11:34:35 Term pregnanc y delivere d [id number] Completed 201802/18/2020 Encounte r for full-ter m uncompli cated delivery ;Practic e ID: 0001 Lorena Carreno MD [address], [place], [address], [facility] 0 11:34:41 Single live [id number] Completed 201802/18/2020 Single live ;Pr actice ID: 0001 Lorena Carreno MD [address], [place], [address], [facility] 0 11:34:19 Gestatio n period, 38 weeks [id number] Completed 201802/18/2020 38 weeks gestatio n of pregnanc y;Practi ce ID: 0001 Lorena Carreno MD [address], [place], [address], [facility] 0 11:33:33 Delivery normal [id number] Completed 201202/18/2020 Normal delivery ;Practic e ID: 0001 Lorena Carreno MD [address], [place], [address], [facility] 0 11:33:08 Pregnanc y [id number] Completed 202006/02/2020 Lorena Carreno MD [address], [place], [address], [facility] 1 14:54:21 History of loop electros urgical excision procedur e [id number] 9102 Completed 2014 CL at 16 and 20 weeks Shirley Cordero [facility], [facility] 1 10:50:05 Grand multipar a [id number] Completed Britaney Consuelo null, [facility] 1 10:50:05 Pregnanc y-induce d hyperten soledad [id number] Completed history of in all prior pregnanc ies at term- ASA daily Shirley Cordero null, [facility] 1 10:50:05 Grand multipar a [id number] Active Shirley Burkettle null, [facility] 1 10:50:05 Alberto tafoya user [id number] Completed still pos UDS 25 weeks Shirley Cordero [facility], [facility] 1 10:50:05 COVID-19 [id number] Completed 2016 7/18 +COVID test Shirley Cordero [facility], [facility] 1 10:50:05 Problem Notes None recorded. Procedures Surgical History Date Name Laterality Status Provider Name and Address Organization Details Recorded Time 07/08/19 23 Date of Last Pap Smear completed Angle Sarah [facility] 01/16/2024 12:23:18 12/17/19 21 SALPINGECTOMY, LAPAROSCOPIC (SURG) completed Lorena Carreno MD [address], [place], [address], [place] [facility] 12/23/2020 15:57:48 02/21/19 15 Removal of ovary/tube(s) completed [facility] 05/06/2020 15:14:47 02/21/19 13 LEEP completed [facility] 05/06/2020 15:14:27 Imaging Results Imaging Date Name Status LastModified by Organization Details LastModified Time 01/17/2024 US, pelvis completed [email or web address] [place] [address], [place], [address], 01/17/2024 14:49:09 01/17/2024 US, transvaginal completed [email or web address] [address], [place], [address], 01/17/2024 14:49:25 01/17/2024 US, pelvis completed [email or web address] [place] [address], [place], [address], 01/17/2024 19:06:08 Procedure Notes None recorded. Medical Equipment None Reported. Allergies No known drug allergies Medications Name Sig Start Date Stop Date Status Note LastModified by Organization Details LastModified Time cyclobenz aprine 10 mg tablet TAKE 1 TABLET BY MOUTH THREE TIMES DAILY NEEDED FOR MUSCLE SPASM 01/15 completed Not Available Not Available Not Available azithromy amarjit 250 mg tablet 02/07 completed Not Available Not Available Not Available nystatin 100,000 unit/gram topical ointment APPLY TOPICALL Y TO THE AFFECTED AREA TWICE DAILY FOR 7 DAYS 07/07 completed Not Available Not Available Not Available fluconazo le 150 mg tablet TAKE 1 TABLET BY MOUTH 1 TIME 11/09 completed Not Available Not Available Not Available hydrocodo ne 5 mg-acetam inophen 325 mg tablet TAKE 1 TABLET BY MOUTH EVERY 6 HOURS NEEDED FOR PAIN 03/09 completed Not Available Not Available Not Available metronida zole 0.75 % (37.5 mg/5 gram) vaginal gel INSERT 1 APPLICAT ORFUL VAGINALL Y AT BEDTIME FOR 5 NIGHTS 01/15 completed Not Available Not Available Not Available Monistat 7 2 % vaginal cream insert 1 applicat orful by vaginal route every day at bedtime 12/25 completed Prescrib ed Elsewher e: No Locat ion: [facility] odify By: miguel shelby DateTime : 05/23/19 13 12:05:53 PM Not Available Not Available Not Available metronida zole 500 mg tablet TAKE 1 TABLET BY MOUTH TWICE DAILY FOR 7 DAYS 11/09 completed Not Available Not Available Not Available acetamino phen 300 mg-codein e 30 mg tablet TK 1 T PO Q 4-6 H PRN P 02/17 completed Not Available Not Available Not Available acyclovir 400 mg tablet take 1 tablet by oral route every 12 hours 05/23 completed Prescrib ed Elsewher e: No [facility] odify By: kelly bowers DateTime : 12/28/19 08:29:43 AM Not Available Not Available Not Available Reglan 10 mg tablet take 1 tablet by oral route 4 times every day 30 minutes before meals and at bedtime 05/23 completed Prescrib ed Elsewher e: No [facility] By: kelly bowers DateTime : 09/08/19 19 01:39:43 PM Not Available Not Available Not Available Macrobid 100 mg capsule take 1 capsule (100MG) by oral route every 12 hours with food 12/25 completed Prescrib ed Elsewher e: No Locat ion: [facility] odify By: miguel garcíaer DateTime : 10/12/19 08:32:52 AM Not Available Not Available Not Available nystatin- triamcino lone 100,000 unit/gram -0.1 % topical ointment APPLY TO THE AFFECTED AREA(S) BY TOPICAL ROUTE 2 TIMES PER DAY FOR 7 days 07/07 completed Not Available Not Available Not Available Zofran 4 mg tablet take 1 by Oral route every 6 hours as needed 12/25 completed Prescrib ed Elsewher e: No Locat ion: [facility] odify By: miguel arceuntoliver DateTime : 05/04/19 13 01:30:00 PM Not Available Not Available Not Available baclofen 10 mg tablet 01/15 completed Not Available Not Available Not Available triamcino lone acetonide 0.1 % topical ointment APPLY TO THE AFFECTED AREA TWICE DAILY FOR 7 DAYS 07/07 completed Not Available Not Available Not Available promethaz ine 25 mg tablet TK 1 T PO Q 4-6 H PRF NAUSEA 02/17 completed Not Available Not Available Not Available gabapenti n 300 mg capsule TAKE 1 CAPSULE BY MOUTH DAILY 07/07 completed Not Available Not Available Not Available Valtrex 500 mg tablet take 1 tablet by oral route every day 12/27 completed Prescrib ed Elsewher e: No Locat ion: [facility] odify By: reyes álvarez DateTime : 12/26/19 08:45:00 AM Not Available Not Available Not Available ibuprofen 600 mg tablet TAKE 1 TABLET BY MOUTH EVERY 6 HOURS NEEDED FOR PAIN 11/12 completed Not Available Not Available Not Available methylpre dnisolone 4 mg tablets in a dose pack 02/07 completed Not Available Not Available Not Available Vitamin D2 1,250 mcg (50,000 unit) capsule take 1 capsule ([id number] ITS) by oral route every week 12/25 completed Prescrib ed Elsewher e: No Locat ion: [facility] odify By: miguel shelby DateTime : 09/30/19 13 12:45:14 PM Not Available Not Available Not Available nifedipin e ER 60 mg tablet,ex tended release TAKE 1 TABLET BY MOUTH EVERY DAY ON AN EMPTY STOMACH 11/12 completed Not Available Not Available Not Available ondansetr on 4 mg disintegr ating tablet DISSOLVE 1 TABLET ON THE TONGUE EVERY 6 HOURS NEEDED FOR NAUSEA OR VOMITING 11/12 completed Not Available Not Available Not Available naproxen 500 mg tablet TAKE 1 TABLET BY MOUTH TWICE DAILY NEEDED FOR PAIN 07/07 completed Not Available Not Available Not Available Loestrin Fe 1.5/30 (28-Day) 1.5 mg-30 mcg (21)/75 mg (7) tablet Take 1 tablet every day by oral route. 01/13 completed Not Available Not Available Not Available oxycodone 5 mg tablet TAKE 1 TABLET BY MOUTH EVERY 6 HOURS NEEDED FOR PAIN 11/12 completed Not Available Not Available Not Available Septra DS 800 mg-160 mg tablet take 1 tablet by oral route every 12 hours 12/25 completed Prescrib ed Elsewher e: No Locat ion: [facility] odify By: miguel shelby DateTime : 06/03/19 13 08:38:16 AM Not Available Not Available Not Available NuvaRing 0.12 mg-0.015 mg/24 hr vaginal insert 1 vaginal ring by vaginal route every month leave in place for 3 weeks, remove for 1 week 05/07 completed Prescrib ed Elsewher e: No Locat ion: [facility] odify By: dalia shelby DateTime : 03/19/19 14 01:00:00 PM Not Available Not Available Not Available Zithromax 500 mg tablet take 2 tablet (1000MG) by oral route once 04/26 completed Prescrib ed Elsewher e: No [facility] By: nancy shelby DateTime : 03/20/19 13 09:13:48 AM Not Available Not Available Not Available topiramat e 50 mg tablet 01/15 completed Not Available Not Available Not Available tinidazol e 500 mg tablet TAKE 4 TABLETS BY MOUTH EVERY DAY FOR 3 DAYS 04/10 completed Not Available Not Available Not Available FeroSul 325 mg (65 mg iron) tablet TAKE 1 TABLET BY MOUTH ONCE DAILY 03/09 completed Not Available Not Available Not Available Lo Loestrin Fe 1 mg-10 mcg (24)/10 mcg (2) tablet take 1 tablet by oral route every day 06/30 completed Prescrib ed Elsewher e: No [facility] By: kelly Mancuso r DateTime : 11/15/19 14 08:15:00 AM Not Available Not Available Not Available Richard-Deon uo DHA 29 mg-1 mg-400 mg oral pack take 2 by Oral route every day for 30 days 05/25 completed Prescrib ed Elsewher e: No Locat ion: [facility] odify By: nancy shelby DateTime : 04/27/19 13 02:45:00 PM Not Available Not Available Not Available Nexplanon 68 mg subdermal implant insert 1 ring by vaginal route every month 05/23 completed Prescrib ed Elsewher e: No Locat ion: [facility] odify By: kelly Mancuso r DateTime : 05/11/19 20 12:17:46 PM Not Available Not Available Not Available Xulane 150 mcg-35 mcg/24 hr transderm al patch APPLY 1 PATCH EXTERNAL LY TO THE SKIN EVERY WEEK 06/02 completed Not Available Not Available Not Available ID NOW COVID-19 Test Kit TEST DIRECTED TODAY 09/30 completed Not Available Not Available Not Available Vitals Date Recorded Body height Body mass index (BMI) Body weight Systolic blood pressure Diastolic blood pressure Provider Name and Address Organization Details Last Updated DateTime 11/09/2021 170.18 cm 29.7 kg/m2 33967.83 g 128 mm[Hg] 82 mm[Hg] Ange Tapia [facility] 2 15:54:45 Date Recorded Body height Body mass index (BMI) Body weight Systolic blood pressure Diastolic blood pressure Provider Name and Address Organization Details Last Updated DateTime 07/07/2022 170.18 cm 28.9 kg/m2 79649.43 g 112 mm[Hg] 67 mm[Hg] Ange Tangpreeti [facility] 3 15:49:26 Date Recorded Body height Body mass index (BMI) Body weight Systolic blood pressure Diastolic blood pressure Provider Name and Address Organization Details Last Updated DateTime 01/16/2024 170.18 cm 30.7 kg/m2 56819.1 g 117 mm[Hg] 79 mm[Hg] Angle [facility] 4 12:22:41 Date Recorded Body height Body mass index (BMI) Body weight Systolic blood pressure Diastolic blood pressure Provider Name and Address Organization Details Last Updated DateTime 02/08/2024 170.18 cm 29.9 kg/m2 96426.14 g 125 mm[Hg] 83 mm[Hg] Angle [facility] 4 12:19:07 Social History Question Answer Notes LastModified by Organizat ion Details LastModified Time Tobacco Smoking Status [facility] 07/07/2022 15:49:36 Do You Have An Advance Directive? No [email or web address] Information n ot available 05/05/2020 What Is Your Level Of Alcohol Consumption? None Information not available 07/07/2022 How Many Years Have You Consumed Alcohol? 13 Information not available 07/07/2022 Are You Blind Or Do You Have Difficulty Seeing? No [email or web address] Information n ot available 05/05/2020 What Is Your Level Of Caffeine Consumption? Heavy [email or web address] Information not available 05/05/2020 How Much Tobacco Do You Chew? None [email or web address] Information not available 05/05/2020 In The 14 Days Before Symptom Onset, Have You Had Close Contact With A Laboratory-confirm ed COVID-19 While That Case Was Ill? No [email or web address] Information n ot available 05/05/2020 In The 14 Days Before Symptom Onset, Have You Had Close Contact With A Person Who Is Under Investigation For COVID-19 While That Person Was Ill? No [email or web address] Information not available 05/05/2020 Have You Been To An Area Known To Be High Risk For COVID-19? No [email or web address] Information not available 05/05/2020 Are You Deaf Or Do You Have Serious Difficulty Hearing? No [email or web address] Information not available 05/05/2020 What Type Of Diet Are You Following? REGULAR Information n ot available 05/05/2020 What Is The Highest Grade Or Level Of School You Have Completed Or The Highest Degree You Have Received? [id number] [email or web address] Information not available 05/05/2020 What Is Your Occupation? Student [email or web address] Information not available 05/05/2020 Are There Any Guns Present In Your Home? No [email or web address] Information not available 05/05/2020 Have You Ever Been Counseled For Unhealthy Alcohol Use? No Information not available 07/07/2022 Do You Use Protection During Sex? No Information not available 05/05/2020 Do You Use Your Seat Belt Or Car Seat Routinely? Yes [email or web address] Information not available 05/05/2020 Do You Have Smoke And Carbon Monoxide Detectors In Your Home? No Information not available 07/07/2022 At What Age Did You Start Smoking Tobacco? 20 Information not available 07/07/2022 How Much Tobacco Do You Smoke? No [email or web address] Information not available 05/05/2020 Do You Feel Stressed (tense, Restless, Nervous, Or Anxious, Or Unable To Sleep At Night)? [id number] [email or web address] Information not available 05/05/2020 Do You Use Any Illicit Or Recreational Drugs? Yes [email or web address] Information not available 05/05/2020 Do You Use Sunscreen Routinely? No [email or web address] Information not available 05/05/2020 How Many Years Have You Smoked Tobacco? 15 Information not available 07/07/2022 Have You Used IV Drugs? No [email or web address] Information not available 05/05/2020 Sex: Unknown Functional Status Question Answer Note LastModified by Organizat ion Details LastModified Time Do you have difficulty walking or climbing stairs? No Information not available 07/07/2022 Are you able to walk? [email or web address] Information not available 05/05/2020 Are you able to care for yourself? Yes Information not available 07/07/2022 Do you have difficulty dressing or bathing? No Information not available 07/07/2022 What is your exercise level? Occasional Information not available 09/30/2021 Mental Status None recorded. Family History Relationship Description Onset Age of this Age Resolved Age Notes LastModified by Organization Details LastModified Time Paternal Grandfather Hypertensive disorder [email or web address] Not available 2019 17:56:15 Paternal Grandfather Myocardial infarction [email or web address] Not available 06/18 17:56:40 Father Hypertensive disorder [email or web address] Not available 2019 17:56:15 Notes:Father: Hypertension P aternal grandfather: Myocardial infarction, Hypertension Medical History Condition Response Allergies (Food, seasonal, environmental ) N Other Y Breast Cancer N Drug/Latex Allergies/Reactions N Blood Transfusion N Dermatologic Disorders N Lung Disease N Defects or Inherited Disease N Breast Problem N Gestational Diabetes N Hematologic disorders N Anesthesia Complications N History of STI Y Deep Vein Thrombosis N Polycystic ovary syndrome N Anxiety Disorder N Autoimmune disease N Arthritis N Infertility N Polyps N Acid Reflux (GERD) N History of abnormal pap Y Cancer N Stroke N Varicosities N Neurologic/Epilepsy N Endometriosis N High Cholesterol N Headaches N Fibromyalgia N Kidney Disease N Heart Problems N Kidney or Bladder Problems N Thyroid Problems N GI Problems N Eating Disorder N Anemia N Art (IVF or FET) N Psychiatric Illness N Ovarian Cancer N Diabetes N Pulmonary (TB, Asthma) N Hepatitis/Liver Disease N Eczema N Urinary Tract Infection N Abuse/Domestic Violence N Asthma N Trauma/Violence N Depression/ depression N Heart Disease N Pre-Eclampsia N Hypertension N Osteoporosis N Thrombophilias N Gynecological History Statement/Question Response Flow Heavy Date of LMP 01/13/2024 N Was last menstrual period normal N STIs/STDs Y Hysterectomy Abnormal Pap Y On BCP's at Conception? N HPV Vaccine N Duration of Flow (days) 5 Current Control Method Sterilizati on Age at First Child 21 Are cycles usually normal Y Frequency of Cycle (Q days) 14 Sexually Active? Y Menses Monthly Y Age of first menstrual cycle 16 Date of Last Pap Smear 07/07/2022 Sexual Problems? N LMP Definite N 02/22/2012 Obstetrics History GPAL:G 7 P 4 1 2 5 Type Value Full Term 4 Induced 2 Premature 1 Living 5 Total 7 Past Encounters Encounter ID Performer Location Encounter Start Date Encounter Closed Date Diagnosis/Indication Diagnosis SNOMED-CT Code Diagnosis ICD10 Code Diagnosis Note [id number] Lorena Carreno MD [facility] [address],[place] [address] 01/14/2020 17:45:46 01/15/2020 13:10:22 Gynecologic examination 06747319 Z01.419 Uses trans dermal contraception 513873324 Z79.3 Venereal d isease screening 595138907 Z11.3 History of loop electrosurgical excision procedure 9785000228 9102 Z98.890 [id number] Lorena Carreno MD [facility] [address],[place] [address] 02/18/2020 11:18:27 02/18/2020 11:41:45 Infection by Trichomonas 69494768 A59.9 Contracept ion care management 767647056 Z30.9 [id number] Lorena Carreno MD [facility] [address],[place] [address] 03/12/2020 14:07:56 03/12/2020 14:25:42 Infection by Trichomonas 16190166 A59.9 [id number] Lynnette Bertrand [facility]BEL[facility] [address],[place] [address] 04/10/2020 10:56:18 04/10/2020 11:21:12 Sexually transmitted infectious disease 0308458 A64 Sent Secondary amenorrhea 156 427926 N91.1 UPT POSITIVE TODAY Surprised and tearful at this news. Unsure of what direction she will take regarding this . Will consider & update us. Aware refer to [facility] if deems to terminate . HCG blood levels drawn for dating in case she opts to continue ; knows if this is the case to call schedule OB appt. Time spent in visit is a total of 15 mins with at least 50% of visit consisting of counseling and review of plan of care. Additional precaution billy measures were taken to minimize potential exposure to the Covid-19 virus during this patient s visit, including available hand fur matcher upon arrive, temperatur e check and being asked a series of screening questions. All staff wore face coverings during this encounter, as well as provided additional cleaning and sanitizing of all surfaces, including countertop s, pens, chairs, door handles, light switches, etc, prior to and following the patient s visit. test positive 912031038 Z32.01 [id number] Yusra Morrison [facility] [address],[place] [address] 04/21/2020 09:31:25 04/21/2020 16:50:48 screening 946167679 Z36.87 [id number] Shirley Cordero [facility] [address],[place] [address] 05/05/2020 10:37:46 05/06/2020 08:16:10 [id number] Angely Meadows [facility] [address],[place] [address] 05/05/2020 10:38:15 05/05/2020 11:34:20 Amenorrhea 84655500 N91.2 [id number] Kanika [facility] [address],[place] [address] 06/02/2020 14:00:02 06/02/2020 14:32:21 screening 071575017 Z36.82 [id number] Lorena Carreno MD [facility] [address],[place] [address] 06/02/2020 14:00:28 06/02/2020 15:00:04 Routine care 917237805 Z34.91 Grand multipara 40740443 Z64.1 [id number] [facility] [address],[place] [address] 06/30/2020 15:56:27 06/30/2020 17:09:39 Previous operation to cervix affecting 05940083 O34.42 Z3A.16 [id number] Lorena Carreno MD [facility] [address],[place] [address] 06/30/2020 15:56:46 06/30/2020 17:19:08 Routine care 754389503 Z34.91 History of loop electrosurgical excision procedure 2889381300 9102 Z98.890 [id number] Kanika Serrano [facility] [address],[place] [address] 07/28/2020 15:23:25 07/28/2020 16:24:21 screening for malformation 518369494 Z36.3 [id number] Lorena Carreno MD [facility] [address],[place] [address] 07/28/2020 15:23:48 07/28/2020 16:45:55 Routine care 996034922 Z34.91 History of loop electrosurgical excision procedure 5777387304 9102 Z98.890 Grand multipara 29799679 Z64.1 [id number] Lorena Carreno MD [facility] [address],[place] [address] 08/26/2020 12:21:03 08/26/2020 14:08:14 Routine care 234911424 Z34.91 Grand multipara 64815317 Z64.1 History of loop electrosurgical excision procedure 2586863421 9102 Z98.890 [id number] Lorena Carreno MD [facility] [address],[place] [address] 09/22/2020 10:18:38 09/22/2020 16:10:24 growth restriction 01507870 O35.8XX9 Reduced fe jade movement 298595963 O36.8199 AND/ OR placental disorder affecting management of mother 60431638 O36.93X1 Oligohydra mnios with problem 764636661 O41.03X1 Nonreassur ing status 998476879 P84 [id number] Jovi Nguyen [facility] [address],[place] [address] 09/22/2020 11:12:33 09/22/2020 14:10:22 Reduced movement 442135233 O36.8199 [id number] Kanika Serrano [facility] [address],[place] [address] 09/22/2020 11:58:57 09/22/2020 14:08:40 condition affecting obstetrical care of mother 102495313 O36.8330 O36.5930 Z3A.28 [id number] MD Mariana [place] [address],[place] [address] 11/12/2020 14:36:53 11/12/2020 15:16:40 Sterilization requested 934943464 Z30.2 [id number] MD Mariana [place] [address],[place] [address] 12/09/2020 15:37:26 12/09/2020 15:53:16 Sterilization requested 729515003 Z30.2 Preoperative state 72206 002 Z78.9 [id number] MD Mariana [place] [address],[place] [address] 12/17/2020 11:30:44 12/17/2020 11:34:11 [id number] MD Spenser [place] [address],[place] [address] 12/23/2020 15:45:53 12/24/2020 18:28:36 Postoperative visit 639233217 Z09 [id number] MD Spenser [place] [address],[place] [address] 03/09/2021 14:48:05 03/09/2021 15:11:44 Gynecologic examination 31794634 Z01.419 [id number] MD Spenser [place] [address],[place] [address] 04/14/2021 14:33:07 04/14/2021 15:00:32 Irregular periods 25954860 N92.6 [id number] Rosario Bello MARYBEL [facility] [address],[place] [address] 09/30/2021 16:12:09 09/30/2021 17:48:21 Vaginitis 48426895 N76.0 Suspect irritation from mock usage, also possible yeastVagin itis panel sentUrine culture sentSTI endocervic al testing sentRx for yeastVulva r care guidelines discussedA void all mock, shaving, waxing for nowCotton underwear onlyNo vaginal washes/pro ductsCan use coconut oil to vulva to help with irritation RTC if symptoms persist Time spent in visit is a total of 30 mins with at least 50% of visit consisting of counseling and review of plan of care. Venereal d isease screening 141479000 Z11.3 Urgent galilea terra to urinate 67793354 R39.15 [id number] Rosario Bello MARYBEL [facility] [address],[place] [address] 11/09/2021 15:40:04 11/09/2021 16:43:15 Infection by Trichomonas 18450297 A59.9 NADEGE urine sentNo symptoms today, doing well!Will update patient with results via portal when availableR TC for WWE when due Time spent in visit is a total of 15 mins with at least 50% of visit consisting of counseling and review of plan of care. [id number] Rosario Bello MARYBEL [facility] [address],[place] [address] 07/07/2022 15:24:15 07/07/2022 16:36:06 Venereal disease screening 945723739 Z11.3 Sexually t ransmitted infectious disease 9917621 A64 Gynecologi c examination 34565889 Z01.419 Take Calcium with Vitamin D 1200mg daily if not receiving in daily diet. It is strongly advised to have an annual flu shot and up can obtain at most pharmacies . If you have not had a TDap shot in the last 10 years you should obtain one as well. Discussed with patient & provided with informatio n regarding Gardisil vaccine to prevent the 4 strains for HPV that cause cervical cancer if under age 26. Encourage safe sexual practices, to use condoms and limit partners if not already in a monogamous relationsh ip. Do monthly self breast exams. Have mammogram yearly or every other year depending on family history. BRCA testing is now available for patients with strong genetic history of female cancer. If interested contact the office. Engage in daily exercise of low impact aerobic exercise 45-60 minutes 4-5 times weekly. Avoid tobacco and illicit drugs as well as using moderation with alcohol intake less than 1-2 8 oz beverages daily. This lifestyle behavior pattern will lead to less health conditions and longer life span. If BMI greater than 25 weight watchers or dietary consult advised. Patient received above instructio ns, and questions have been answered. If you have any questions please call or respond to this email. Patient was made aware of the patient portal and may obtain a paper copy of today's plan if desired. WWEBC - BShx of LEEP in 2014last pap 12/2019 - normalpap done todaySTI testing added to papblood STI panel orderedUTD with PCPRTC in 1 year or sooner if needed [id number] Juan Miguel Lang MD [facility] [address],[facility] [place] [address] 01/16/2024 11:55:01 01/16/2024 14:57:17 Abnormal uterine bleeding 0029679851 9100 N93.9 Dysmenorrhea 383594548 N 94.6 [id number] [facility] [address],[facility] [place] [address] 01/17/2024 09:31:26 01/17/2024 09:56:56 Irregular periods 33200670 N92.6 [id number] Juan Miguel Lang MD [facility] [address],[facility] [place] [address] 02/08/2024 12:01:46 02/08/2024 13:14:47 Abnormal uterine bleeding 7125077119 9100 N93.9 this patient is a 38-year-ol d female presents for follow-up on ultrasound . The ultrasound was performed for abnormal uterine bleeding. A single fibroid was observed. We talked about fibroids in detail. Talked about the risks. We talked about etiology, natural history, treatment of endometria l /uterine fibroid. We talked about treatment and management of abnormal uterine bleeding. We reviewed her laboratory evaluation . Spent over 20 minutes in the patient's care. We agreed to start norethindr one only contracept goldy pills. Health Concerns Section Related Observation LastModified by Organization Detai ls LastModified Time None Recorded Concern Status LastModified by Organization Details LastModified Time None Recorded Advance Directives Directive N: Payers Encounter Date Sequence Insurance Name Policy Number Policy Li Covered Member ID Li Member ID Guarantor Name 11/09/2021 1 [facility] ON OR AFTER 08/21/20 (MEDICAID REPLACEMENT - HMO) Alla Rausch [id number] Alla Rausch 07/07/2022 1 [facility] ON OR AFTER 08/21/20 (MEDICAID REPLACEMENT - HMO) Alla Rausch [id number] Alla Rausch 01/16/2024 1 [facility] ON OR AFTER 08/21/20 (MEDICAID REPLACEMENT - HMO) Alla Rausch [id number] Alla Rausch 01/17/2024 1 [facility] ON OR AFTER 08/21/20 (MEDICAID REPLACEMENT - HMO) Alla Rausch [id number] Alla Rausch 02/08/2024 1 [facility] ON OR AFTER 08/21/20 (MEDICAID REPLACEMENT - HMO) Alla Rausch [id number] Alla Rausch 02/08/2024 2 [facility] ON OR AFTER 08/21/20 (MEDICAID REPLACEMENT - HMO) Alla Rausch [id number] Alla Rausch Notes Date Note Type Note Provider Name and Address Organization Details Recorded Time 11/09/2021 text/html Patient here for NADEGE , (+) trichomonas on 2Completed metronidazole course, partner was treatedNo vaginal symptoms today, feeling much better since treatmentShe got on Tuesday!No issues today JACOBO Govea [address], [place], [address], [facility] 11/09/2021 16:11:53 07/07/2022 text/html Annual GYNReport ed bypatient.Menstrual cycle:Normal menses Urinary symptoms:No hematuria; No incontinence Vulva:No genital lesion Vagina:Normal vaginal discharge Breast:No breast pain; No breast lump; No nipple discharge Current Contraception:salpi ngectomy Sexual complaints:No sexual complaints; No pain during intercourse; Normal libido Menopausal Symptoms:No menopausal symptoms; Normal vaginal lubrication Psychological symptoms:No depression; No anxiety; No PMDD Preventive measures:Encourage self breast examination; Encourage regular exercise; Encourage no tobacco use; Encourage regular mammograms starting age 40 JACOBO Govea [address], [place], [address], [facility] 07/07/2022 16:26:01 01/16/2024 text/html this patient is a 38-year-old female with severe menorrhagia and dysmenorrhea. She has very heavy bleeding. . It is longstanding very heavy bleeding. Her menses are regular. However, they require double protection. Patient has accidents, getting blood on her bedding and clothing. Is affected work. She changes a pad or tampon every hour. She leaks blood around the pad and tampon. This bleeding has a profound impact on her quality of life and her activities of daily living. The bleeding is also very painful. It affects her work life. Affects her relationships. Juan Miguel Lang MD [address], [place], [address], [facility] 01/16/2024 14:57:07 02/08/2024 text/html this patient is a 38-year-old female presents for follow-up on ultrasound. The ultrasound was performed for abnormal uterine bleeding. A single fibroid was observed. We talked about fibroids in detail. Talked about the risks. We talked about etiology, natural history, treatment of endometrial /uterine fibroid. We talked about treatment and management of abnormal uterine bleeding. We reviewed her laboratory evaluation. Spent over 20 minutes in the patient's care. We agreed to start norethindrone only contraceptive pills. Juan Miguel Lang MD [address], [place], [address], [facility] 02/08/2024 13:11:12 OBGyn Episode Ob Episode Information Episode Created Date Number of Fetuses Patient Bloodtype Patient rh Status Prepregnancy Weight lbs Domestic Partner Domestic Partner Phone Father Name Chemical Dependency Professional Status 01/14/20 20 1 CLOSED Fetus Data First Name Last Name Admitted to NICU Weight (g) Sex Living Outcome Pediatric Complications Fetus ID Race Codes Race Delivery Type 2834.95 F Full Term 6297 Vaginal Delivery Eliezer Calculation Initial Eliezer Date Initial Exam Date Initial Exam Provider Initial Ultrasound Date Last Menstrual Period Date Ultra Sound Weeks Gestation 0 Eighteen To Twenty Week Eliezer Update Ultra Sound Date Fundal Height At Umbil Quickening Date Ultra Sound Latest Weeks Gestation Final Eliezer Confirmed By Final Eliezer Confirmed Date Final Eliezer Date Ultra Sound Latest Days Gestation 0 0 Menstrual History Last Menstrual Date Menses Monthly On Bcp Conception Prior Menses Frequency Hcg Plus Date Menarche Onset Age Delivery Information Delivery Date Delivery Type Labor Anesthesia Weeks Gestation Incision Type Labor Labor Length Hrs Delivered By Post Complications Tubal Sterilization Discharge Date Comments 3 38 Discharge Information Feeding Method Contraceptive Method Maternal HG B and HCT Levels Ob Episode Information Episode Created Date Number of Fetuses Patient Bloodtype Patient rh Status Prepregnancy Weight lbs Domestic Partner Domestic Partner Phone Father Name Chemical Dependency Professional Status 01/14/20 20 1 CLOSED Fetus Data First Name Last Name Admitted to NICU Weight (g) Sex Living Outcome Pediatric Complications Fetus ID Race Codes Race Delivery Type 2692.97 5704 F Full Term 6299 Vaginal Delivery Eliezer Calculation Initial Eliezer Date Initial Exam Date Initial Exam Provider Initial Ultrasound Date Last Menstrual Period Date Ultra Sound Weeks Gestation 0 Eighteen To Twenty Week Eliezer Update Ultra Sound Date Fundal Height At Umbil Quickening Date Ultra Sound Latest Weeks Gestation Final Eliezer Confirmed By Final Eliezer Confirmed Date Final Eliezer Date Ultra Sound Latest Days Gestation 0 0 Menstrual History Last Menstrual Date Menses Monthly On Bcp Conception Prior Menses Frequency Hcg Plus Date Menarche Onset Age Delivery Information Delivery Date Delivery Type Labor Anesthesia Weeks Gestation Incision Type Labor Labor Length Hrs Delivered By Post Complications Tubal Sterilization Discharge Date Comments 7 37 SGA,ingu i nal hernia Discharge Information Feeding Method Contraceptive Method Maternal HG B and HCT Levels Ob Episode Information Episode Created Date Number of Fetuses Patient Bloodtype Patient rh Status Prepregnancy Weight lbs Domestic Partner Domestic Partner Phone Father Name Chemical Dependency Professional Status 01/14/20 20 1 CLOSED Fetus Data First Name Last Name Admitted to NICU Weight (g) Sex Living Outcome Pediatric Complications Fetus ID Race Codes Race Delivery Type , Induced 6298 Eliezer Calculation Initial Eliezer Date Initial Exam Date Initial Exam Provider Initial Ultrasound Date Last Menstrual Period Date Ultra Sound Weeks Gestation 0 Eighteen To Twenty Week Eliezer Update Ultra Sound Date Fundal Height At Umbil Quickening Date Ultra Sound Latest Weeks Gestation Final Eliezer Confirmed By Final Eliezer Confirmed Date Final Eliezer Date Ultra Sound Latest Days Gestation 0 0 Menstrual History Last Menstrual Date Menses Monthly On Bcp Conception Prior Menses Frequency Hcg Plus Date Menarche Onset Age Delivery Information Delivery Date Delivery Type Labor Anesthesia Weeks Gestation Incision Type Labor Labor Length Hrs Delivered By Post Complications Tubal Sterilization Discharge Date Comments 1 Discharge Information Feeding Method Contraceptive Method Maternal HG B and HCT Levels Ob Episode Information Episode Created Date Number of Fetuses Patient Bloodtype Patient rh Status Prepregnancy Weight lbs Domestic Partner Domestic Partner Phone Father Name Chemical Dependency Professional Status 01/15/20 1 CLOSED Fetus Data First Name Last Name Admitted to NICU Weight (g) Sex Living Outcome Pediatric Complications Fetus ID Race Codes Race Delivery Type 2834.95 F Full Term 6301 Vaginal Delivery Eliezer Calculation Initial Eliezer Date Initial Exam Date Initial Exam Provider Initial Ultrasound Date Last Menstrual Period Date Ultra Sound Weeks Gestation 0 Eighteen To Twenty Week Eliezer Update Ultra Sound Date Fundal Height At Umbil Quickening Date Ultra Sound Latest Weeks Gestation Final Eliezer Confirmed By Final Eliezer Confirmed Date Final Eliezer Date Ultra Sound Latest Days Gestation 0 0 Menstrual History Last Menstrual Date Menses Monthly On Bcp Conception Prior Menses Frequency Hcg Plus Date Menarche Onset Age Delivery Information Delivery Date Delivery Type Labor Anesthesia Weeks Gestation Incision Type Labor Labor Length Hrs Delivered By Post Complications Tubal Sterilization Discharge Date Comments 9 38 Discharge Information Feeding Method Contraceptive Method Maternal HG B and HCT Levels Ob Episode Information Episode Created Date Number of Fetuses Patient Bloodtype Patient rh Status Prepregnancy Weight lbs Domestic Partner Domestic Partner Phone Father Name Chemical Dependency Professional Status 01/14/20 1 CLOSED Fetus Data First Name Last Name Admitted to NICU Weight (g) Sex Living Outcome Pediatric Complications Fetus ID Race Codes Race Delivery Type 2834.95 M Full Term 6300 Vaginal Delivery Eliezer Calculation Initial Eliezer Date Initial Exam Date Initial Exam Provider Initial Ultrasound Date Last Menstrual Period Date Ultra Sound Weeks Gestation 0 Eighteen To Twenty Week Eliezer Update Ultra Sound Date Fundal Height At Umbil Quickening Date Ultra Sound Latest Weeks Gestation Final Eliezer Confirmed By Final Eliezer Confirmed Date Final Eliezer Date Ultra Sound Latest Days Gestation 0 0 Menstrual History Last Menstrual Date Menses Monthly On Bcp Conception Prior Menses Frequency Hcg Plus Date Menarche Onset Age Delivery Information Delivery Date Delivery Type Labor Anesthesia Weeks Gestation Incision Type Labor Labor Length Hrs Delivered By Post Complications Tubal Sterilization Discharge Date Comments 8 37 +trich Discharge Information Feeding Method Contraceptive Method Maternal HG B and HCT Levels Ob Episode Information Episode Created Date Number of Fetuses Patient Bloodtype Patient rh Status Prepregnancy Weight lbs Domestic Partner Domestic Partner Phone Father Name Chemical Dependency Professional Status 06/03/19 21 1 CLOSED Fetus Data First Name Last Name Admitted to NICU Weight (g) Sex Living Outcome Pediatric Complications Fetus ID Race Codes Race Delivery Type , Induced 8994 Eliezer Calculation Initial Eliezer Date Initial Exam Date Initial Exam Provider Initial Ultrasound Date Last Menstrual Period Date Ultra Sound Weeks Gestation 0 Eighteen To Twenty Week Eliezer Update Ultra Sound Date Fundal Height At Umbil Quickening Date Ultra Sound Latest Weeks Gestation Final Eliezer Confirmed By Final Eliezer Confirmed Date Final Eliezer Date Ultra Sound Latest Days Gestation 0 0 Menstrual History Last Menstrual Date Menses Monthly On Bcp Conception Prior Menses Frequency Hcg Plus Date Menarche Onset Age Delivery Information Delivery Date Delivery Type Labor Anesthesia Weeks Gestation Incision Type Labor Labor Length Hrs Delivered By Post Complications Tubal Sterilization Discharge Date Comments 2 Discharge Information Feeding Method Contraceptive Method Maternal HG B and HCT Levels Ob Episode Information Episode Created Date Number of Fetuses Patient Bloodtype Patient rh Status Prepregnancy Weight lbs Domestic Partner Domestic Partner Phone Father Name Chemical Dependency Professional Status 06/03/19 21 1 B Positive 177 CLOSED Fetus Data First Name Last Name Admitted to NICU Weight (g) Sex Living Outcome Pediatric Complications Fetus ID Race Codes Race Delivery Type true 935.533 5 F true Prematur e growth restriction, absent end diastolic 8997 Primary Problems Problem Notes 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 Problem Name Start Date End Date Resolution Snomed Code Not e COVID-19 08/21/2016 053098532 18 +COV ID 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 hypertension 92519993 history of in a ll prior pregnancies at term- ASA daily Marijuana user [id number] still pos UDS 25 weeks History of loop electrosurgical excision procedure 02/21/2014 [id number] CL at 1 6 and 20 weeks Grand multipara 55288530 Eliezer Calculation Initial Eliezer Date Initial Exam Date Initial Exam Provider Initial Ultrasound Date Last Menstrual Period Date Ultra Sound Weeks Gestation 12/10/2020 06/02/2020 04/21/2020 03/05/2020 7 Eighteen To Twenty Week Eliezer Update Ultra Sound Date Fundal Height At Umbil Quickening Date Ultra Sound Latest Weeks Gestation Final Eliezer Confirmed By Final Eliezer Confirmed Date Final Eliezer Date Ultra Sound Latest Days Gestation 0 [email or web address] 06/02/2020 12/11/19 21 0 Pre- Flowsheet Flowsheet Date 05/05/2020 Paul Score Blood Edema Fundus Height Fundus Units Glucose Ketones Leukocytes Nitrite Labor Signs Protein Cervic Dilation Cervic Effacement Cervic Station Type Weight in lbs Pre/Post Dialysis Refused BP Diastolic BP Location Tested BP Systolic BP Type Fetus Heart Rate Present Fetus Movement Comments Flowsheet Date 06/02/2020 Paul Score Blood Edema Fundus Height Fundus Units Glucose Ketones Leukocytes Nitrite Labor Signs Protein Cervic Dilation Cervic Effacement Cervic Station neg none trace Type Weight in lbs Pre/Post Dialysis Refused Weight 174.73544122127 BP Diastolic BP Location Tested BP Systolic BP Type 85 136 Fetus Heart Rate Present A 150 Fetus Movement A No Comments Alla is a 35yo her e for care. complicated only by grand multiparity status and history of LEEP (two term pregnancies since). She also states in all 4 pregnancies she got PIH right at the very end. Using MJ- encouraged cessation. US today normal NT and NB present. NIPT and labs today. CL next visit for h/o LEEP. Flowsheet Date 06/30/2020 Paul Score Blood Edema Fundus Height Fundus Units Glucose Ketones Leukocytes Nitrite Labor Signs Protein Cervic Dilation Cervic Effacement Cervic Station Type Weight in lbs Pre/Post Dialysis Refused BP Diastolic BP Location Tested BP Systolic BP Type Fetus Heart Rate Present Fetus Movement Comments Flowsheet Date 06/30/2020 Paul Score Blood Edema Fundus Height Fundus Units Glucose Ketones Leukocytes Nitrite Labor Signs Protein Cervic Dilation Cervic Effacement Cervic Station neg none trace Type Weight in lbs Pre/Post Dialysis Refused Weight 177.062843718167 BP Diastolic BP Location Tested BP Systolic BP Type 73 113 Fetus Heart Rate Present A 150 Fetus Movement A No Comments Doing well. US today CL 3.5c m. AFP today. Will start ASA for h/o PIH in all pregnancies at term. Anatomy next visit. Flowsheet Date 07/28/2020 Paul Score Blood Edema Fundus Height Fundus Units Glucose Ketones Leukocytes Nitrite Labor Signs Protein Cervic Dilation Cervic Effacement Cervic Station Type Weight in lbs Pre/Post Dialysis Refused BP Diastolic BP Location Tested BP Systolic BP Type Fetus Heart Rate Present Fetus Movement Comments Flowsheet Date 07/28/2020 Paul Score Blood Edema Fundus Height Fundus Units Glucose Ketones Leukocytes Nitrite Labor Signs Protein Cervic Dilation Cervic Effacement Cervic Station neg none 21 trace Type Weight in lbs Pre/Post Dialysis Refused Weight 174.10926877041 BP Diastolic BP Location Tested BP Systolic BP Type 80 119 Fetus Heart Rate Present A 150 Fetus Movement A Yes Comments Doing well. Stopped MJ- some times still vomiting in am. UDS next visit. Anatomy today complete and wnl. Taking ASA. Flowsheet Date 08/26/2020 Paul Score Blood Edema Fundus Height Fundus Units Glucose Ketones Leukocytes Nitrite Labor Signs Protein Cervic Dilation Cervic Effacement Cervic Station neg none 27 trace Type Weight in lbs Pre/Post Dialysis Refused Weight 176.809212458240 BP Diastolic BP Location Tested BP Systolic BP Type 75 117 Fetus Heart Rate Present A 150 Fetus Movement A Yes Comments Doing well. UDS today. GCT n ext visit. Precautions given. Flowsheet Date 09/22/2020 Paul Score Blood Edema Fundus Height Fundus Units Glucose Ketones Leukocytes Nitrite Labor Signs Protein Cervic Dilation Cervic Effacement Cervic Station neg none 27 trace Type Weight in lbs Pre/Post Dialysis Refused Weight 177.380966529315 BP Diastolic BP Location Tested BP Systolic BP Type 84 138 Fetus Heart Rate Present A 130 Fetus Movement A Decreased Comments Alla is doing well except for she reports decreased FM for last 4 days. Did feel one movement today. ON NSt 130, minimal to moderate variability, no accels (10x10 or other), two small variables. On US, EFW 1%, JESSICA 2.6, AEDF, and BPP 4/10 with points only for breathing and movement. Did have COVID last month. Has history of PIH in all prior pregnancies at term. Rh pos, was doing GCT today.I discussed with her and SO the concerning findings and the need for immediate transfer to [place], and likely delivery soon. We discussed steroids for lung maturity, and that DENIA will reevaluate her once she arrives there. All questions answered, Support given. Flowsheet Date 09/22/2020 Paul Score Blood Edema Fundus Height Fundus Units Glucose Ketones Leukocytes Nitrite Labor Signs Protein Cervic Dilation Cervic Effacement Cervic Station Type Weight in lbs Pre/Post Dialysis Refused BP Diastolic BP Location Tested BP Systolic BP Type Fetus Heart Rate Present Fetus Movement Comments Flowsheet Date 09/22/2020 Paul Score Blood Edema Fundus Height Fundus Units Glucose Ketones Leukocytes Nitrite Labor Signs Protein Cervic Dilation Cervic Effacement Cervic Station Type Weight in lbs Pre/Post Dialysis Refused BP Diastolic BP Location Tested BP Systolic BP Type Fetus Heart Rate Present Fetus Movement Comments Menstrual History Last Menstrual Date Menses Monthly On Bcp Conception Prior Menses Frequency Hcg Plus Date Menarche Onset Age 0103/05/2020 Genetic Screening And Infection History Question Response Note Mental Retardation/Autism false Patient's Age Will Be 35 Years Or Older At Estim ated Date of Delivery false Thalassemia (Kyrgyz, Sao Tomean, Mediterranean, Or Background): MCV < 80 false Neural Tube Defect (Meningomyelocele, Spina Bifi da, Or Anencephaly) false Congenital Heart Defect false Down Syndrome false Nico-Sachs (eg, Gnosticist, Cajun, Albanian-Duarte) f alse Jose Disease false Sickle Cell Disease Or Trait () false Hemophilia Or Other Blood Disorders false Muscular Dystrophy false Cystic Fibrosis false Nicholas's Chorea false Intellectual Disability/Autism false If Yes, Was Person Tested For Fragile X? false Other Inherited Genetic Or Chromosomal Disorder false Maternal Metabolic Disorder (eg, Type 1 Diabetes , PKU) false Patient Or Baby's Father Had A Child With Defects Not Listed Above false Recurrent Loss, Or A Stillbirth false Medications (including Suppl ements, Vitamins, Herbs, OTC Drugs), Illicit/Recreational Drugs, Alcohol true MJ If Yes, Agent(s) And Strength/Dosage false Any Other Genetic History false Live With Someone With TB Or Exposed To TB false Patient Or Partner Has History Of Genital Herpes false Rash Or Viral Illness Since Last Menstrual Perio d false History Of STD, Gonorrhea, Chlamydia, HPV, Syphi lis false Other Infection History false History of HIV false History of Hepatitis false Prior GBS-infected child false Hemoglobinopathy Or Carrier false Other Structural Defect false Recent Travel History Outside of Country false Delivery Information Delivery Date Delivery Type Labor Anesthesia Weeks Gestation Incision Type Labor Labor Length Hrs Delivered By Post Complications Tubal Sterilization Discharge Date Comments 1 29 Low Transvers e oligo Discharge Information Feeding Method Contraceptive Method Maternal HG B and HCT Levels
--- OUTSIDE RECORDS SUMMARY | 2024-06-06 09:34 | XMS_ITS | Referral Summary ---
Author Organization [facility] Address [address] [place] [address] Care Team Providers Care Fancy Wire Drawer Name Role Phone Simona Hassan NP Primary Care Provider [phone] Allergies No known active allergies Medications No known medications Active Problems Problem Noted Date Diagnosed Date Sore throat 03/07/2024 Overview (03/07/2024): COVID flu and strep were all negative. Take antibiotics and steroids as directed. Without resolution notify the office BMI 30.0-30.9,adult 02/28/2024 Assessment & Plan (02/28/2024 2:54 PM STREETCAR REPAIRER HELPER): BMI Follow-up includes: Discussed diet and exercising counseling. Obesity (BMI 30-39.9) 01/25/2024 Assessment & Plan (02/28/2024 2:54 PM STREETCAR REPAIRER HELPER): BMI Follow-up includes: Discussed diet and exercising counseling. Assessment & Plan (01/25/2024 10:09 AM STREETCAR REPAIRER HELPER): Discussed the patients BMI: The BMI is [...] Refused),06/28/2022(Deferred: Patient Refused),03/24/2021(Deferred: Patient Refused) Tdap 09/22/2020,01/09/2019,10/03/2017 Social History Tobacco Use Types Packs/Day Years [...] on file Legal Sex Female 7:12 AM STREETCAR REPAIRER HELPER Gender Identity Female 06/04/2024 8:33 AM CDT Sexual Orientation Straight 06/04/2024 8: 33 AM CDT Last Filed Vital Signs Vital Sign Reading Time Taken Comments Blood Pressure 110/80 02/28/2024 2:50 PM STREETCAR REPAIRER HELPER Pulse 82 02/28/2024 2:50 PM STREETCAR REPAIRER HELPER Temperature 36.8 C (98.3 F) 02/28/2024 2:50 PM STREETCAR REPAIRER HELPER Respiratory Rate 16 07/27/2022 7:38 AM CDT Oxygen Saturation 97% 02/28/2024 2:50 PM STREETCAR REPAIRER HELPER Inhaled Oxygen Concentration - - Weight 87.1 kg (192 lb) 02/28/2024 2:50 PM STREETCAR REPAIRER HELPER Height 170.2 cm (5' 7 ) 02/28/2024 2:50 PM STREETCAR REPAIRER HELPER Body Mass Index 30.07 02/28/2024 2:50 PM STREETCAR REPAIRER HELPER Plan of Treatment Not on file Insurance [facility] MEDICAID [facility] Care Teams Fancy Wire Drawer Relationship Specialty Start Date End Date Simona Hassan NP [address] [facility] [address] [place] [address] PCP - General Internal Medicine 06/28/22
--- OUTSIDE RECORDS SUMMARY | 2024-06-06 09:34 | XMS_ITS | Continuity of Care Document ---
Author Organization [facility] Address [address] [place] [address] Phone Care Team Providers Care Manager Of Broadcast Content Name Role Phone Unavailable Unavailable Unavailable Allergies, Adverse Reactions, Alerts Substance Reaction Status Criticality No Known Allergies Active No Inform ation Medications Medication Instructions Dosage Effective Dates (start - stop) Status Comments metronidazole 500 mg tablet take 1 tablet by oral route every 12 hours 500 MG - Active Problems Condition Type Effective Dates (start - stop) Clini mihir Status Comments No Known Problems Procedures Procedure Date HIV-1/HIV-2 With Reflex To Western Blot KARAN DNA DIR PROBE CYTOPATH C/V AUTO FLUID REDO Preventive checkup, new,18-39 yrs Advance Directives Directive Yes / No Effective Date File Name No Information Encounters Encounter Description Practice Location Reason(s) For Visit Diagnoses Date Provider Providers Copied on Encounter [facility], [address] [place] [address], [id number], tel:[phone] [facility] Vaginitis 1201 6 No Information Preventive checkup, new,18-39 yrs [facility], [address] [place] [address], [id number], [place] tel:[phone] [facility] PAP test (chief complaint) vaginal discharge (chief complaint) Well woman check with abnormal findingTobacco useBody mass index (BMI) 25.0-25.9, adultVaginitis Encounter for screening for other viral diseasesEncoun ter for immunizationEn cntr for general adult medical exam w/o abnormal findings 6 No Information Family History Family Member Type Diagnosis Age At Onset No Information Immunizations Vaccine Date Status Comments tetanus and diphtheria toxoi ds, adsorbed, for adult use pending Source: New Immu nization Record Payers Payer name Insurance type Covered republican ID Authorsanjuanaa tisabina(s) No Information Social History Type Description Quantity Date Captured Comments Sex Female Smoking Status No Information Chief Complaint And Reason For Visit No Information Reason For Referral Reason For Referral No Information Plan Of Treatment Date Type Action Status Goal Lifestyle education regardin g diet completed Unknown Immunization tetanus and diph theria toxoids, adsorbed, for adult use ordered History Of Present Illness Encounter Date Complaint History Of Prese nt Illness vaginal discharge Her symptoms b tian 1 Week ago. She states the problem has remained unchanged. The symptoms are reported as being mild. Presently the patient is experiencing vaginal discharge. Color is white. Character is thick. Presently the patient is not experiencing vaginal itching, vaginal irritation and vaginal odor. The patient is premenopausal. Last menstrual period was 03/06/2015. Relevant factors include Norplant and unfaithful partner. The patient has a history of bacterial vaginosis, chlamydia, gonorrhea and yeast. The patient has no history of abnormal PAP, herpes genitalis or trichomoniasis. Her symptoms are not aggravated by anything. Her symptoms are not relieved by anything. Her symptoms are associated with frequent urination but she denies fever, dyspareunia, vaginal burning, dysuria, genital lesions, genital rash, genital ulcers, herpes genitalis or itching skin of vaginal/groin. Additional information: Recently found out that her boyfriend was unfaithful and states that she was sexually active without condoms with him during this time. PAP test Currently pregna nt: no. : 4. Parity: Term: 3. : 1. Patient is not contemplating . The patient states she uses Implanon for control. Last LMP was 03/06/2015. Her menses is regular with heavy flow. Negative for dysmenorrhea. Negative for: breast discharge, breast lump(s) and breast pain. Positive for: breast self exam. Menopausal symptoms negative for: hot flashes, insomnia, night sweats and vaginal dryness. Associated symptoms include urinary urgency and vaginal discharge. Pertinent negatives include abnormal bleeding (hematology), abnormal vaginal bleeding, decreased libido, dyspareunia and vaginal itching.The patient states her exercise level is moderate. The patient does use tobacco. She does drink alcohol. Additional information: reports thick white vaginal discharge- recently found out that her boyfriend was unfaithful. Functional Status Date Functional Assessmen t No Information Instructions Date Instruction Additional Infor sola Healthy appearing 29 year old female. Concerns: vaginal discharge. I will let you know the results of you pap smear when it results. Return to the clinic as needed or yearly for your physical exam. Related to Well woman check with abnormal finding I will let you know the results of the testing on your vaginal discharge when they result. In the meantime, do not have any unprotected sex. Return to clinic as needed or for yearly physical exam. Related to Vaginitis Tetanus shot given today. Relate d to Encounter for immunization How do I know if I a m overweight and by how much? - Providers use a special measure called body mass index, or BMI, to decide who is underweight, normal weight, or overweight. Your BMI will tell you whether your weight is appropriate for your height.If your BMI is between 25 and 29.9, you are overweight.If your BMI is 30 or greater, you are obese.Should I see a provider? - If you are overweight or obese, see your primary care provider. He or she might have suggestions on ways to lose weight.Overweight and obese people are more likely than people of normal weight to get diabetes, heart disease, cancer, and lots of other health problems. People who are overweight/ obese also live less time than people of normal weight. That's why it's important to try to keep your weight in the normal range.What's the best way to lose weight on my own? - To lose weight, you have to eat less or move more. Doing both is even better.Studies have compared different diets such as the Atkins diet, the Zone diet, and the Weight Watchers diet. No single diet turns out to be better than any other. Any diet that reduces the number of calories you eat can help you lose weight - as long as you stick with it.Physical activity works the same way. You can walk, dance, garden, or even just move your arms while sitting. What's important is that you increase the number of calories you burn by moving more. And you have to keep doing the extra activity.If you go on a diet for a short time, or increase your activity for a while, you might lose weight. But you will regain the weight if you go back to your old habits. Weight loss is about changing your habits for good.The best way to start is to make small changes and stick with them. Then, little by little, you can add new changes that you also stick with. Related to Body mass index (BMI) 25.0-25.9, adult Set a quit date. Emmanuel ally, the quit date should be within 2 weeks. Tell family, friends, and coworkers about quitting and request understanding and support. Anticipate challenges to planned quit attempt, particularly during the critical first few weeks. These include nicotine withdrawal symptoms. Remove tobacco products from your environment. Prior to quitting, avoid smoking in places where you spend a lot of time (eg, work, home, car). We have Behavioral Health Counselors on staff that can help you with behavior modification to assist your quitting smoking.Let me know if there is anything else that I can do to assist you in your journey to stop smoking. Related to Tobacco use Giving encouragement to exercise Related to Body mass index (BMI) 25.0-25.9, adult Lifestyle education regarding di et Related to Body mass index (BMI) 25.0-25.9, adult Assessments Type Assessment Date No Information Patient Care Teams Name Effective Dates (start - stop) Status Members No Information
[2024-06-06] MEDS: LIDOCAINE 5% PATCH 1 PATCH TRANSDERM (11:29)
[2024-06-06] MEDS: ORPHENADRINE CITRATE 100 MG TABLET.ER PO (11:29)
[2024-06-06] MEDS: KETOROLAC 30 MG/ML VIAL (*BKC) IM (11:29)
[2024-06-06] MEDS: dexAMETHasone SOD PHOS INJ 10 MG/ML 1 ML VIAL IM (11:30)
[2024-06-06] MEDS: HYDROcodone/acetaminophen (*CRX) 5-325 MG TABLET 1 TAB PO (11:30)
--- NOTE | 2024-06-06 11:39 | PC.NURSE ---
Pt. to x-ray
--- OUTSIDE RECORDS SUMMARY | 2024-06-06 12:16 | XMS_ITS | Referral Summary ---
Author Organization [facility] Address [address] [place] [address] Care Team Providers Care Training Facilitator Name Role Phone Simona Hassan NP Primary Care Provider [phone] Allergies No known active allergies Medications No known medications Active Problems Problem Noted Date Diagnosed Date Sore throat 03/07/2024 Overview (03/07/2024): COVID flu and strep were all negative. Take antibiotics and steroids as directed. Without resolution notify the office BMI 30.0-30.9,adult 02/28/2024 Assessment & Plan (02/28/2024 2:54 PM KENO TERMINAL OPERATOR): BMI Follow-up includes: Discussed diet and exercising counseling. Obesity (BMI 30-39.9) 01/25/2024 Assessment & Plan (02/28/2024 2:54 PM KENO TERMINAL OPERATOR): BMI Follow-up includes: Discussed diet and exercising counseling. Assessment & Plan (01/25/2024 10:09 AM KENO TERMINAL OPERATOR): Discussed the patients BMI: The BMI is [...] on file Legal Sex Female 7:12 AM KENO TERMINAL OPERATOR Gender Identity Female 06/04/2024 8:33 AM CDT Sexual Orientation Straight 06/04/2024 8: 33 AM CDT Last Filed Vital Signs Vital Sign Reading Time Taken Comments Blood Pressure 110/80 02/28/2024 2:50 PM KENO TERMINAL OPERATOR Pulse 82 02/28/2024 2:50 PM KENO TERMINAL OPERATOR Temperature 36.8 C (98.3 F) 02/28/2024 2:50 PM KENO TERMINAL OPERATOR Respiratory Rate 16 07/27/2022 7:38 AM CDT Oxygen Saturation 97% 02/28/2024 2:50 PM KENO TERMINAL OPERATOR Inhaled Oxygen Concentration - - Weight 87.1 kg (192 lb) 02/28/2024 2:50 PM KENO TERMINAL OPERATOR Height 170.2 cm (5' 7 ) 02/28/2024 2:50 PM KENO TERMINAL OPERATOR Body Mass Index 30.07 02/28/2024 2:50 PM KENO TERMINAL OPERATOR Plan of Treatment Not on file Insurance [facility] MEDICAID [facility] Care Teams Training Facilitator Relationship Specialty Start Date End Date Simona Hassan NP [address] [facility] [address] [place] [address] PCP - General Internal Medicine 06/28/22
--- OUTSIDE RECORDS SUMMARY | 2024-06-06 12:16 | XMS_ITS | Clinical Summary ---
Author Organization [facility] Address [address] [place] [address] Phone Care Team Providers Care Wheat Cleaner Name Role Phone Unavailable Primary Care Provider [...]
--- OUTSIDE RECORDS SUMMARY | 2024-06-06 12:16 | XMS_ITS | Clinical Summary ---
Author Organization [facility] Address [address] [place] [address] Care Team Providers Care Ibm Bpm Developer Name Role Phone Simona Hassan NP Primary Care Provider [phone] Allergies No known active allergies Medications No known medications Active Problems Problem Noted Date Diagnosed Date Sore throat 03/07/2024 Overview (03/07/2024): COVID flu and strep were all negative. Take antibiotics and steroids as directed. Without resolution notify the office BMI 30.0-30.9,adult 02/28/2024 Assessment & Plan (02/28/2024 2:54 PM BINDER AND BOX BUILDER): BMI Follow-up includes: Discussed diet and exercising counseling. Obesity (BMI 30-39.9) 01/25/2024 Assessment & Plan (02/28/2024 2:54 PM BINDER AND BOX BUILDER): BMI Follow-up includes: Discussed diet and exercising counseling. Assessment & Plan (01/25/2024 10:09 AM BINDER AND BOX BUILDER): Discussed the patients BMI: The BMI is [...] on file Legal Sex Female 7:12 AM BINDER AND BOX BUILDER Gender Identity Female 06/04/2024 8:33 AM CDT Sexual Orientation Straight 06/04/2024 8: 33 AM CDT Obstetrics History Last Filed Vital Signs Vital Sign Reading Time Taken Comments Blood Pressure 110/80 02/28/2024 2:50 PM BINDER AND BOX BUILDER Pulse 82 02/28/2024 2:50 PM BINDER AND BOX BUILDER Temperature 36.8 C (98.3 F) 02/28/2024 2:50 PM BINDER AND BOX BUILDER Respiratory Rate 16 07/27/2022 7:38 AM CDT Oxygen Saturation 97% 02/28/2024 2:50 PM BINDER AND BOX BUILDER Inhaled Oxygen Concentration - - Weight 87.1 kg (192 lb) 02/28/2024 2:50 PM BINDER AND BOX BUILDER Height 170.2 cm (5' 7 ) 02/28/2024 2:50 PM BINDER AND BOX BUILDER Body Mass Index 30.07 02/28/2024 2:50 PM BINDER AND BOX BUILDER Plan of Treatment Health Maintenance Due Date [...] patient's age to complete this topic Insurance [facility] MEDICAID [facility] Care Teams Ibm Bpm Developer Relationship Specialty Start Date End Date Simona Hassan NP [address] [facility] [address] [place] [address] PCP - General Internal Medicine 06/28/22
--- OUTSIDE RECORDS SUMMARY | 2024-06-06 12:16 | XMS_ITS | Continuity of Care Document ---
Author Organization [facility] Address [address] [place] [address] Phone Care Team Providers Care Degreasing Solution Reclaimer Name Role Phone Unavailable Unavailable Unavailable Allergies, [...] Diagnoses Date Provider Providers Copied on Encounter [facility], [address] [place] [address], [id number], tel:[phone] [facility] Vaginitis 1201 6 No Information Preventive checkup, new,18-39 yrs [facility], [address] [place] [address], [id number], [place] tel:[phone] [facility] PAP test (chief complaint) vaginal discharge (chief [...] Record Payers Payer name Insurance type Covered democrat ID Authorsanjuanaa tisabina(s) No Information Social History [...]
--- OUTSIDE RECORDS SUMMARY | 2024-06-06 12:16 | XMS_ITS | Clinical Summary ---
Author Organization [facility] Address [address] [place] [address] Care Team Providers Care Irrigation Laborer Name Role Phone Unavailable Primary Care Provider Unavailabl e Source Comments [facility],non-owned Affiliates and Associated Physician Practices is amultiple site organization consisting of ambulatory clinics and hospital sitesin [place], [place] and [place]. This disclosure is being madepursuant to the Care Everywhere program and may not contain all information available regarding this patient. Last updated 17.[facility] Allergies No known active allergies Medications * [...] migh t be different from the original. [employer] form completed. Diapers given. 11/06/2020 [...] on file Legal Sex Female 6:32 AM CONTINUING EDUCATION INSTRUCTOR Gender Identity Not on file Sexual Orientation [...] Reactive Non Reactive 09/22/2020 5:37 PM CDT [facility] Blood BLOOD SPECIMEN / Unknown Lab Venipuncture / Unknown 09/22/2020 3:24 PM CDT 09/22/2020 4:47 PM CDT Narrative [facility] - 09/22/2020 5:37 PM CDT No Laboratory evidence of HIV infection. us Terrie Ma MD LAB - CHEMISTRY ORDERABLES Final Result Performing Organization Address City/State/[facility] Co de Phone Number [facility] [address] [place], [place] [id number] from Last 3 Months or Most Recently Relevant to Health Maintenance Insurance [facility] Advance Directives * Full Code (Latest Code Status on File) Date Activated Date Inactivated Comments 09/24/2020 8:14 PM 09/28/2020 5:01 PM * Full Code Date Activated Date Inactivated Comments 09/22/2020 1:36 PM 09/24/2020 8:14 PM
[2024-06-06 12:17] LABS: BEDSIDEPREGUCG Negative (Negative)
[2024-06-06 12:26] LABS: Add Urine Microscopic? YES; Appearance Urine Cloudy (Clear); Bacteria Urine Rare /hpf; Bilirubin Urine Negative (Negative); Blood Urine Negative (Negative); Color Urine Yellow (Yellow); Glucose Urine UA Negative (Negative); Ketones Urine Negative (Negative); Leukocyte Esterase Ur Negative LEU/UL (Negative); Nitrate Urine Negative (Negative); Non Pathogenic Casts 0-2; Protein Urine Negative (Negative); RBC Urine 0-2 /hpf (0-2); Specific Grav Ur 1.008 (1.001-1.035); Squamous Epithelial Cell Urine Many /hpf (Few); Urobilinogen Urine 0.2 mg/dL (<2.0); pH Urine 6.5 (5.0-9.0)
--- NOTE | 2024-06-06 12:50 | ED_ITS ---
HPI - General Adult General Chief complaint: Back Pain/Injury Stated complaint: lower back and eugenie leg pain Time Seen by Provider: 06/06/24 10:25 History of Present Illness HPI narrative: Patient is a 39-year-old female presents emergency department with chief complaint of low back pain and pain radiating down both legs the patient denies bowel or bladder incontinence denies footdrop does report the pain shoots down both of her legs along the sciatic nerve distribution Related Data Home Medications ?Medication ?Instructions ?Recorded ?Confirmed ?Last Taken ?Type baclofen 10 mg tablet 10 mg PO DAILY 08/20/22 08/20/22 Unknown History topiramate 50 mg tablet 50 mg PO DAILY 08/20/22 08/20/22 Unknown History Allergies Allergy/AdvReac Type Severity Reaction Status Date / Time No Known Allergies Allergy Verified 06/06/24 09:00 Review of Systems Review of Systems: A 10 system review of systems was completed on the patient and is negative except for what is stated in the HPI. Nursing and ancillary documentation was reviewed. PMFSH Past Medical History Medical History Overweight (BMI 25.0-29.9) Surgical History Surgical History History of left salpingo-oophorectomy H/O section H/O LEEP Family History Family History Father Hypertension Social History Social History Smoking packs per day: 0.5 Smoking cigarettes per day: 10.0 Years smoked: 7 Smoking pack-years: 3.50 Smoking status: Former smoker Tobacco type: cigarettes Second hand tobacco smoke exposure: No Smoking end date: 11/22/19 Alcohol intake: current Alcohol use details: A COUPLE GLASSES OF WINE/MONTH Substance use: current Substance use type: marijuana Other substance usage details: SMOKE Last use: 12/10/20 Living arrangements: with family Additional living arrangements comments: CHILDREN Gender identity (if verbalized by the patient): Female Spiritual care concerns: No Exam Narrative: GENERAL: Well-appearing, well-nourished, and in no acute distress. HEAD: Normocephalic, atraumatic. EYES: PERRLA and EOMI. ENT: Nares clear, no rhinorrhea or epistaxis. Mucous membranes moist. NECK: Supple. CHEST: Clear to auscultation. No respiratory distress. HEART: Regular rate and rhythm. No murmur heard. Normal peripheral pulses. ABDOMEN: Soft, nontender, nondistended, normal active bowel sounds. EXTREMITIES: Normal range of motion. No edema. Pain along the sciatic nerve distribution on bilateral lower extremities SKIN: Warm, dry, no rash. NEURO: No focal deficits. Alert and oriented x3. No saddle anesthesia no footdrop PSYCH: Normal mood and affect. Course Vital Signs Vital signs: Vital Signs Temperature 36.3 C L 06/06/24 09:14 Pulse Rate 76 06/06/24 09:14 Respiratory Rate 20 06/06/24 09:14 Blood Pressure 164/105 H 06/06/24 09:14 Pulse Oximetry 100 06/06/24 09:14 Oxygen Delivery Room Air 06/06/24 09:14 Temperature 36.3 C L 06/06/24 09:14 Pulse Rate 76 06/06/24 09:14 Respiratory Rate 20 06/06/24 09:14 Blood Pressure 164/105 H 06/06/24 09:14 Pulse Oximetry 100 06/06/24 09:14 Oxygen Delivery Room Air 06/06/24 09:14 Medical Decision Making MDM Narrative Medical decision making narrative: Differential diagnosis includes pyelonephritis, UTI, sciatica, low back pain Plain film x-rays lumbar spine showed evidence of scoliosis but no evidence of fracture Urinalysis showed 6-10 white blood cells but negative leukocyte esterase negative nitrate and many squamous cells. Patient is feeling much better after receiving medications Vital Signs Vital Signs: Vital Signs Temperature 36.3 C L 06/06/24 09:14 Pulse Rate 76 06/06/24 09:14 Respiratory Rate 20 06/06/24 09:14 Blood Pressure 164/105 H 06/06/24 09:14 Pulse Oximetry 100 06/06/24 09:14 Oxygen Delivery Room Air 06/06/24 09:14 Temperature 36.3 C L 06/06/24 09:14 Pulse Rate 76 06/06/24 09:14 Respiratory Rate 20 06/06/24 09:14 Blood Pressure 164/105 H 06/06/24 09:14 Pulse Oximetry 100 06/06/24 09:14 Oxygen Delivery Room Air 06/06/24 09:14 Lab Data Labs: Lab Results 06/06/24 06/06/24 Range/Units 12:15 12:18 Urine Color Yellow (Yellow) Urine Appearance Cloudy H (Clear) Urine pH 6.5 (5.0-9.0) Ur Specific [place] 1.008 (1.001-1.035) Urine Protein Negative (Negative) mg/dL Urine Glucose (UA) Negative (Negative) mg/dL Urine Ketones Negative (Negative) mg/dL Ur Blood (Man) Negative (Negative) Urine Nitrate Negative (Negative) Urine Bilirubin Negative (Negative) Urine Urobilinogen 0.2 (<2.0) mg/dL Leukocyte Esterase Rfl Negative (Negative) ELMER/UL Urine RBC 0-2 (0-2) /hpf Urine WBC 6-10 H (0-3) /hpf Ur Squamous Epith Cells Many H (Few) /hpf Urine Bacteria Rare /hpf Urine Casts 0-2 POC Urine HCG, Qual Negative (Negative) Discharge Plan Discharge Clinical Impression: Scoliosis Sciatica Qualifiers: Laterality: bilateral Qualified Code(s): M54.31 - Sciatica, right side Patient Disposition: Home Condition: Stable Instructions: Antibiotic Form, Sciatica (ED), Acute Low Back Pain (ED) Patient Language: Italian Prescriptions: New lidocaine [Lidoderm] 5 % adhesive patch,medicated 1 patch topical DAILY Qty: 15 0RF Rx Instructions: leave on most painful area for up to 12 hrs prednisone 20 mg tablet 40 mg PO DAILY 5 Days Qty: 10 0RF cyclobenzaprine 10 mg tablet 10 mg PO TID PRN (Reason: muscle spasm) Qty: 21 0RF diclofenac potassium 50 mg tablet 50 mg PO TID PRN (Reason: pain) Qty: 30 0RF No Action baclofen 10 mg tablet 10 mg PO DAILY topiramate 50 mg tablet 50 mg PO DAILY Follow-up/Referrals: Sonya,MARYBEL Jarvis [Primary Care Provider] - Brandyn Ruano MD [Physician] - Time of Disposition: 12:54
[2024-06-06 13:04] VITALS: BP 119/81; PULSE 75; RESP 16; TEMP 36.6; O2SAT 100
== END 2024-06-06 13:06 | disposition home or self-care (01) ==
PROVIDERS: Emergency Provider Emergency Medicine; PCP Nurse Practitioner Family
DX: M54.41 Lumbago with sciatica, right side (principal); M41.9 Scoliosis, unspecified; E66.3 Overweight; Z68.30 Body mass index [BMI] 30.0-30.9, adult; Z87.891 Personal history of nicotine dependence; Z90.79 Acquired absence of other genital organ(s); Z90.721 Acquired absence of ovaries, unilateral
CPT/HCPCS: 72100; 81001; 81025; 96372; 99284; A9270; J1100; J1885

== ENCOUNTER 2024-12-05 12:41 | Emergency (ER) | payer OTHER, SELFPAY ==
--- NOTE | 2024-12-05 12:46 | ED.GENADULT ---
HPI - General Adult General Chief complaint: Dental/Oral Stated complaint: tooth pain Source: patient Mode of arrival: ambulatory Limitations: no limitations History of Present Illness HPI narrative: Pt is a 39 y/o female presenting with c/o R. lower dental pain. Reports cracking tooth a few months ago while chewing on a lemon head. Reports pain began 2 days ago, became worse this morning. Tx initiated DIRECT [employer]ING [employer]ATOR includes ibuprofen and orajel. No additional complaints. Related Data Home Medications ?Medication ?Instructions ?Recorded ?Confirmed ?Last Taken ?Type topiramate 50 mg tablet 50 mg PO DAILY 08/20/22 08/20/22 Unknown History Allergies Allergy/AdvReac Type Severity Reaction Status Date / Time No Known Allergies Allergy Verified 12/05/24 12:47 Review of Systems Review of Systems: CONSTITUTIONAL: Denies body aches, fever, chills, or sweats. EYES: Denies visual changes, redness, or discharge. ENT: Reports dental pain Denies rhinorrhea, congestion, sore throat, or otalgia. CARDIOVASCULAR: Denies chest pain, palpitations, or edema. RESPIRATORY: Denies cough or dyspnea. GASTROINTESTINAL: Denies abdominal pain, nausea, vomiting, or diarrhea. GENITOURINARY: Denies dysuria or hematuria. SKIN: Denies rash, itching, or wounds. MUSCULOSKELETAL: Denies back pain, joint pain, or myalgia. NEUROLOGIC: Denies headache, numbness, tingling, or weakness. PSYCH: Denies depression or anxiety. All systems reviewed & are unremarkable except as noted in HPI and below PMFSH Past Medical History Medical History Overweight (BMI 25.0-29.9) Surgical History Surgical History History of left salpingo-oophorectomy H/O section H/O LEEP Family History Family History Father Hypertension Social History Social History Smoking packs per day: 0.5 Smoking cigarettes per day: 10.0 Years smoked: 7 Smoking pack-years: 3.50 Smoking status: Former smoker Tobacco type: cigarettes Second hand tobacco smoke exposure: No Smoking end date: 11/22/19 Alcohol intake: current Alcohol use details: A COUPLE GLASSES OF WINE/MONTH Substance use: current Substance use type: marijuana Other substance usage details: SMOKE Last use: 12/10/20 Living arrangements: with family Additional living arrangements comments: CHILDREN Gender identity (if verbalized by the patient): Female Spiritual care concerns: No Exam Narrative: GENERAL: Well-appearing, well-nourished, and in no acute distress. HEAD: Normocephalic, atraumatic. EYES: EOMI. No redness or drainage. Conjunctivae normal. ENT: Mucous membranes pink and moist. Nares clear. No rhinorrhea. TMs normal bilaterally. Throat normal. Uvula midline. no trismus. No evidence of Prashant angina. NECK: Normal AROM. Supple. CHEST: No respiratory distress. HEART: Regular rate. EXTREMITIES: Normal range of motion. SKIN: Warm, dry, no rash. Capillary refill normal. Normal skin turgor. NEURO: No focal deficits. Alert and oriented x3. Gait steady. PSYCH: Normal affect. No signs of depression or anxiety. HENMT: Teeth image:  1. carious, TTP Course Course Level of Care: Express Care Visit Vital Signs Vital signs: Vital Signs Temperature 98.1 F 12/05/24 12:49 Pulse Rate 85 12/05/24 12:49 Respiratory Rate 16 12/05/24 12:49 Blood Pressure 133/88 12/05/24 12:49 Pulse Oximetry 99 12/05/24 12:49 Oxygen Delivery Room Air 12/05/24 12:49 Temperature 98.1 F 12/05/24 12:49 Pulse Rate 85 12/05/24 12:49 Respiratory Rate 16 12/05/24 12:49 Blood Pressure 133/88 12/05/24 12:49 Pulse Oximetry 99 12/05/24 12:49 Oxygen Delivery Room Air 12/05/24 12:49 Medical Decision Making MDM Narrative Medical decision making narrative: Discussed elevated blood pressure readings with patient and advised daily BP monitoring and f/u with PCP if persisting. Vital Signs Vital Signs: Vital Signs Temperature 98.1 F 12/05/24 12:49 Pulse Rate 85 12/05/24 12:49 Respiratory Rate 16 12/05/24 12:49 Blood Pressure 133/88 12/05/24 12:49 Pulse Oximetry 99 12/05/24 12:49 Oxygen Delivery Room Air 12/05/24 12:49 Temperature 98.1 F 12/05/24 12:49 Pulse Rate 85 12/05/24 12:49 Respiratory Rate 16 12/05/24 12:49 Blood Pressure 133/88 12/05/24 12:49 Pulse Oximetry 99 12/05/24 12:49 Oxygen Delivery Room Air 12/05/24 12:49 Discharge Plan Discharge Clinical Impression: Pain, dental, Dental caries, Elevated blood pressure reading in office without diagnosis of hypertension Patient Disposition: Home Condition: Stable Instructions: Antibiotic Form Additional Instructions: Follow-up with dentist JAMES. Go straight to ER should your symptoms become worse or should any new symptoms develop Patient Language: Maltese Prescriptions: New ibuprofen 600 mg tablet 600 mg PO QID PRN (Reason: pain) Qty: 30 0RF penicillin V potassium 500 mg tablet 500 mg PO Q12H 10 Days Qty: 20 0RF hydrocodone-acetaminophen 5-325 mg tablet 1 tablet PO Q8H PRN (Reason: pain) Qty: 10 0RF No Action topiramate 50 mg tablet 50 mg PO DAILY Follow-up/Referrals: Sonya,MARYBEL Jarvis [Primary Care Provider, Unknown] - 12/06/24 Time of Disposition: 12:56
[2024-12-05 12:49] VITALS: BP 133/88; PULSE 85; RESP 16; TEMP 36.7; O2SAT 99
== END 2024-12-05 13:00 | disposition home or self-care (01) ==
PROVIDERS: Emergency Provider Registered Nurse; PCP Nurse Practitioner Family
DX: K02.9 Dental caries, unspecified (principal); R03.0 Elevated blood-pressure reading, without diagnosis of hypertension; Z87.891 Personal history of nicotine dependence
CPT/HCPCS: 99213; G0463